=== PATIENT | male | born 1945 | race Caucasian/White ===

== ENCOUNTER 2017-04-29 22:06 | Inpatient (IN) | payer OTHER ==
--- NOTE | 2017-04-29 22:42 | PDOC ---
History of Present Illness - General History Source: Patient, Family, Old Records Exam Limitations: No Limitations - History of Present Illness Initial Comments: 04/29/17 23:10 The patient is a 71 year old male, with a significant past medical history of HTN and CAD with cardiac stent, who presents to the emergency department with rectal bleeding, lower abdominal pain, nausea, vomiting and dizziness onset today. He reports that he had a total of 3 bowel movements that were bloody in nature. He reports mild abdominal pain on the left side of his body, ranging from mild to moderate, without radiation or modifying factors. He notes that after a vomiting episode his abdominal pain resolved. He describes his vomit as nonbloody and nonbilious. He reports that he has never had a colonoscopy. The patient denies chest pain, shortness of breath, headache, fever, chills, diarrhea and constipation. Denies dysuria, frequency, urgency and hematuria. Allergies: Past surgical history: Knee surgery, eye surgery (Cataracts and Glaucoma) Social history: No alcohol, tobacco or drug use reported PMD - Dr. Gallito Mackenzie <Babak Thapa - Last Filed: 04/29/17 23:10> <Ysabel Mcleod - Last Filed: 04/30/17 03:06> - General Chief Complaint: Rectal Bleed Stated Complaint: RECTAL BLEED Time Seen by Provider: 04/29/17 22:30 Past History <Babak Thapa - Last Filed: 04/29/17 23:10> - Past Medical History Anemia: No Asthma: No Cancer: No Cardiac Disorders: Yes (STENT) CVA: No COPD: No CHF: No Dementia: No Diabetes: No GI Disorders: No Disorders: No HTN: Yes Hypercholesterolemia: Yes Liver Disease: No Seizures: No Thyroid Disease: No - Surgical History Abdominal Surgery: No Appendectomy: No Cardiac Surgery: Yes (STENT) Cholecystectomy: No Lung Surgery: No Neurologic Surgery: No Orthopedic Surgery: Yes (R KNEE SX ?) - Suicide/Smoking/Psychosocial Hx Smoking Status: No Smoking History: Never smoked Have you smoked in the past 12 months: No Number of Cigarettes Smoked Daily: 0 Information on smoking cessation initiated: No Hx Alcohol Use: No Drug/Substance Use Hx: No Substance Use Type: Alcohol Hx Substance Use Treatment: No <Ysabel Mcleod - Last Filed: 04/30/17 03:06> - Past Medical History Allergies/Adverse Reactions: Allergies Allergy/AdvReac Type Severity Reaction Status Date / Time No Known Drug Allergies Allergy Verified 05/18/14 08:46 Home Medications: Ambulatory Orders Atorvastatin Calcium 10 mg PO DAILY tablet 11/29/13 Aspirin [ASA -] 81 mg PO DAILY 04/26/14 Lisinopril [Prinivil -] 2.5 mg PO DAILY 04/26/14 Travoprost (Benzalkonium) [Travatan 0.004% Eye Drop] 1 drop OU HS 04/26/14 Nitroglycerin Sublingual [Nitrostat -] 0.4 mg SL PRN 04/27/14 Review of Systems - Review of Systems Able to Perform ROS?: Yes Comments:: 04/29/17 23:08 GENERAL/CONSTITUTIONAL: No fever or chills. No weakness. HEAD, EYES, EARS, NOSE AND THROAT: No change in vision. No ear pain or discharge. No sore throat.- CARDIOVASCULAR: No chest pain or shortness of breath RESPIRATORY: No cough, wheezing, or hemoptysis. GASTROINTESTINAL: (+) Abdominal pain, Rectal bleeding, nausea and vomiting. No diarrhea or constipation. GENITOURINARY: No dysuria, frequency, or change in urination. MUSCULOSKELETAL: No joint or muscle swelling or pain. No neck or back pain. SKIN: No rash NEUROLOGIC: (+) Dizziness. No headache, loss of consciousness, or change in strength/sensation. ENDOCRINE: No increased thirst. No abnormal weight change HEMATOLOGIC/LYMPHATIC: No anemia, easy bleeding, or history of blood clots. ALLERGIC/IMMUNOLOGIC: No hives or skin allergy. <Babak Thapa - Last Filed: 04/29/17 23:10> *Physical Exam - Vital Signs Last Vital Signs Temp Pulse Resp BP Pulse Ox 97.7 F 71 18 149/74 98 04/29/17 22:08 04/29/17 22:08 04/29/17 22:08 04/29/17 22:08 04/29/17 22:08 - Physical Exam Comments: 04/29/17 23:08 GENERAL: Awake, alert, and fully oriented, in no acute distress HEAD: No signs of trauma, normocephalic, atraumatic EYES: PERRLA, EOMI, sclera anicteric, conjunctiva clear ENT: Auricles normal inspection, hearing grossly normal, nares patent, oropharynx clear without exudates. Moist mucosa NECK: Normal ROM, supple, no lymphadenopathy, JVD, or masses LUNGS: No distress, speaks full sentences, clear to auscultation bilaterally HEART: Regular rate and rhythm, normal S1 and S2, no murmurs, rubs or gallops, peripheral pulses normal and equal bilaterally. ABDOMEN: Soft, nontender, normoactive bowel sounds. No guarding, no rebound. No masses EXTREMITIES : Normal inspection, Normal range of motion, no edema. No clubbing or cyanosis. NEUROLOGICAL: Cranial nerves II through XII grossly intact. Normal speech, normal gait, no focal sensorimotor deficits SKIN: Warm, Dry, normal turgor, no rashes or lesions noted. RECTAL EXAM: (+) Normal Tone and Melena. <Babak Thapa - Last Filed: 04/29/17 23:10> - Vital Signs Last Vital Signs Temp Pulse Resp BP Pulse Ox 97.7 F 71 18 149/74 98 04/29/17 22:08 04/29/17 22:08 04/29/17 22:08 04/29/17 22:08 04/29/17 22:08 <Ysabel Mcleod - Last Filed: 04/30/17 03:06> ED Treatment Course - LABORATORY CBC & Chemistry Diagram: 04/29/17 23:50 04/29/17 23:50 <Ysabel Mcleod - Last Filed: 04/30/17 03:06> Medical Decision Making - Medical Decision Making 04/30/17 01:20 71-year-old male came in with family because of rectal bleeding this evening. Past medical history of hypertension, coronary artery disease. At home, he had a bloody bowel movement and then later had another bowel movement. He became dizzy and vomited. On exam, he has melena CBC does not show any acute anemia he denies any shortness of breath or chest pain Spoke with Dr. Stefanie Coello who will admit him to [facility] 04/30/17 03:06 <Ysabel Mcleod - Last Filed: 04/30/17 03:06> *DC/Admit/Observation/Transfer - Attestations Scribe Attestion: 04/29/17 23:08 Documentation prepared by Babak Thapa, acting as medical consultant for Ysabel Mcleod MD <Babak Thapa - Last Filed: 04/29/17 23:10> - Discharge Dispostion Admit: Yes <Ysabel Mcleod - Last Filed: 04/30/17 03:06> Diagnosis at time of Disposition: Gastrointestinal hemorrhage with melena - Referrals
[2017-04-29] MEDS ORDERED: PANTOPRAZOLE SODIUM 40 MG in SODIUM CHLORIDE 100 ML IVPB ONE (22:58)
[2017-04-29] MEDS ORDERED: PANTOPRAZOLE SODIUM 100 ML IVPB ONE (23:59)
[2017-04-30 00:04] LABS: BASOPHIL 0.4 % (0-2.0); EOSINOPHIL 1.7 % (0-4.5); MCH 29.5 pg (25.7-33.7); MCHC 34.4 g/dl (32.0-35.9); MEAN CELL VOLUME 85.7 fl (80-96); MEAN PLT VOLUME 8.9 fl (7.5-11.1); NEUTROPHILS 77.5 % (42.8-82.8); PLATELET COUNT 248 K/MM3 (134-434); RDW 12.9 % (11.9-15.9)
[2017-04-30] MEDS: SODIUM CHLORIDE 1,000 ML IV SCH (00:09)
[2017-04-30 00:20] LABS: INR 1.03 (0.82-1.09); PROTHROMBIN TIME (PATIENT) 11.6 SEC (9.98-11.88)
[2017-04-30 00:33] LABS: ALBUMIN 3.9 g/dl (3.4-5.0); ANION GAP 8 (8-16); CO2 34 mmol/L (21-32); CREATININE 0.9 mg/dL (0.7-1.3); GLUCOSE,RANDOM 149 mg/dL (74-106); SGOT/AST 23 U/L (15-37); SGPT/ALT 30 U/L (12-78)
[2017-04-30 00:35] LABS: ALK PHOS 88 U/L (45-117); BILIRUBIN,TOTAL 0.3 mg/dL (0.2-1.0); TOT PROT 7.4 g/dl (6.4-8.2)
[2017-04-30 04:41] VITALS: BMI 28.1
[2017-04-30 10:24] LABS: MCH 29.3 pg (25.7-33.7); MCHC 34.1 g/dl (32.0-35.9); MEAN CELL VOLUME 86.1 fl (80-96); MEAN PLT VOLUME 8.8 fl (7.5-11.1); PLATELET COUNT 203 K/MM3 (134-434); RDW 12.7 % (11.9-15.9); WHITE BLOOD COUNT 8.4 K/mm3 (4.0-10.0)
--- NOTE | 2017-04-30 11:53 | EKG ---
Test Reason : Blood Pressure : / mmHG Vent. Rate : 072 BPM Atrial Rate : 072 BPM P-R Int : 162 ms QRS Dur : 080 ms QT Int : 386 ms P-R-T Axes : 029 -19 129 degrees QTc Int : 422 ms NORMAL SINUS RHYTHM LEFT VENTRICULAR HYPERTROPHY WITH REPOLARIZATION ABNORMALITY ABNORMAL ECG WHEN COMPARED WITH ECG OF 15-OCT-2011 11:59, PREMATURE VENTRICULAR COMPLEXES ARE NO LONGER PRESENT T WAVE INVERSION NOW EVIDENT IN ANTERIOR LEADS Confirmed by KVNG TAVAREZ, JETHRO ([id number]) on 04/30/2017 11:53:43 AM Referred By: Confirmed By:JETHRO CALDERON MD
--- NOTE | 2017-04-30 12:26 | HP ---
Admitting History and Physical - Primary Care Physician PCP: Gallito Mackenzie G - Admission Chief Complaint: gi bleed History of Present Illness: ER HISTORY History of Present Illness Initial Comments: 04/29/17 23:10 The patient is a 71 year old male, with a significant past medical history of HTN and CAD with cardiac stent, who presents to the emergency department with rectal bleeding, lower abdominal pain, nausea, vomiting and dizziness onset today. He reports that he had a total of 3 bowel movements that were bloody in nature. He reports mild abdominal pain on the left side of his body, ranging from mild to moderate, without radiation or modifying factors. He notes that after a vomiting episode his abdominal pain resolved. He describes his vomit as nonbloody and nonbilious. He reports that he has never had a colonoscopy. The patient denies chest pain, shortness of breath, headache, fever, chills, diarrhea and constipation. Denies dysuria, frequency, urgency and hematuria. Allergies: Past surgical history: Knee surgery, eye surgery (Cataracts and Glaucoma) Social history: No alcohol, tobacco or drug use reported PMD - Dr. Gallito Mackenzie Pt seen by me in the floors spoke with DR gonzalez- GI Pt's at bedside- history of events noted, had small amount of blood in stool this AM no abdominal pain or dizziness History Source: Patient Limitations to Obtaining History: No Limitations - Past Medical History Cardiovascular: Yes: CAD (s/p stent in 2011), HTN - Smoking History Smoking history: Never smoked Have you smoked in the past 12 months: No Aproximately how many cigarettes per day: 0 - Alcohol/Substance Use Hx Alcohol Use: No Home Medications - Allergies Allergies/Adverse Reactions: Allergies Allergy/AdvReac Type Severity Reaction Status Date / Time No Known Drug Allergies Allergy Verified 05/18/14 08:46 - Home Medications Home Medications: Ambulatory Orders Atorvastatin Calcium 10 mg PO DAILY tablet 11/29/13 Aspirin [ASA -] 81 mg PO DAILY 04/26/14 Lisinopril [Prinivil -] 2.5 mg PO DAILY 04/26/14 Travoprost (Benzalkonium) [Travatan 0.004% Eye Drop] 1 drop OU HS 04/26/14 Nitroglycerin Sublingual [Nitrostat -] 0.4 mg SL PRN 04/27/14 Review of Systems - Review of Systems Constitutional: denies: Chills, Fever Cardiovascular: denies: Chest Pain, Palpitations, Shortness of Breath Gastrointestinal: reports: Rectal Bleeding. denies: Abdominal Pain Physical Examination Vital Signs: Vital Signs Temperature 97.9 F 04/30/17 06:24 Pulse Rate 76 04/30/17 06:24 Respiratory Rate 20 04/30/17 06:24 Blood Pressure 133/67 04/30/17 06:24 O2 Sat by Pulse Oximetry (%) 98 04/30/17 04:08 Constitutional: Yes: No Distress, Calm Cardiovascular: Yes: Regular Rate and Rhythm. No: Murmur Respiratory: Yes: CTA Bilaterally Gastrointestinal: Yes: Normal Bowel Sounds, Soft, Abdomen, Obese. No: Distention, Tenderness Edema: No Psychiatric: Yes: Alert, Oriented Labs: CBC, BMP 04/30/17 10:10 Imaging - Results Chest X-ray: Image Reviewed (clear) EKG: Image Reviewed (NSR , LVH) Problem List - Problems (1) Arteriosclerotic heart disease (ASHD) Code(s): I25.10 - ATHSCL HEART DISEASE OF [place] CORONARY ARTERY W/O ANG PCTRS (2) Gastrointestinal hemorrhage with melena Code(s): K92.1 - MELENA (3) CAD (coronary artery disease) Code(s): I25.10 - ATHSCL HEART DISEASE OF [place] CORONARY ARTERY W/O ANG PCTRS (4) HTN (hypertension) Code(s): I10 - ESSENTIAL (PRIMARY) HYPERTENSION Assessment/Plan PLAN H/HCT stable, monitor HCT No active bleeding protonix to be added continue with home meds , hold off ASA and HCTZ spoke with pt's speech therapy teacher- Dr Zimmer and Dr Gonzalez may start diet -- liquid OOB DVT prophylaxis-- SCD spoke with scheduled for EGD and colonoscopy on Friday Time spent 40 min
--- NOTE | 2017-04-30 12:41 | CON.GI ---
Consult Consult Specialty:: Gastroenterology Referred by:: Dr Kayla Vicente Reason for Consultation:: Rectal bleeding - History of Present Illness Chief Complaint: Vomiting and rectal bleeding History of Present Illness: 71M developed vomiting of food followed by voluminous bright red hematesis yesterday. He had a small amount of blood passage again today. No hematemesis. He has never had an EGD or a colonoscopy. His brother had a bleeding colon polyp removed. His served as our metal handler. - History Source History Provided By: Patient Limitations to Obtaining History: Language Barrier - Past Medical History Cardio/Vascular: Yes: CAD (s/p stent in 2011, denies PR), HTN, Hyperlipdemia Gastrointestinal: Yes: Other (umbilical hernia) Additional Medical History: Glaucoma - Past Surgical History Past Surgical History: Yes: Arthrosocopy (right knee) - Alcohol/Substance Use Hx Alcohol Use: Yes (rare in holidays only) History of Substance Use: reports: None - Smoking History Smoking history: Never smoked Have you smoked in the past 12 months: No Aproximately how many cigarettes per day: 0 - Social History Usual Living Arrangement: With Spouse ADL: Independent Occupation: retired bus and independent driver Place of : [place] ([place] Came to [place] (year[place] age 29 History of Recent Travel: No Home Medications - Allergies Allergies/Adverse Reactions: Allergies Allergy/AdvReac Type Severity Reaction Status Date / Time No Known Drug Allergies Allergy Verified 05/18/14 08:46 - Home Medications Home Medications: Ambulatory Orders Atorvastatin Calcium 10 mg PO DAILY tablet 11/29/13 Aspirin [ASA -] 81 mg PO DAILY 04/26/14 Lisinopril [Prinivil -] 2.5 mg PO DAILY 04/26/14 Travoprost (Benzalkonium) [Travatan 0.004% Eye Drop] 1 drop OU HS 04/26/14 Nitroglycerin Sublingual [Nitrostat -] 0.4 mg SL PRN 04/27/14 Family Disease History - Family Disease History Family Disease History: Other: Father ( 55 valcoholic cirrhosis), Mother ( lived into her 90s), Brother (colon polyp) Review of Systems - Review of Systems Constitutional: reports: No Symptoms Eyes: reports: No Symptoms HENT: reports: No Symptoms Neck: reports: No Symptoms Cardiovascular: reports: No Symptoms Respiratory: reports: No Symptoms Gastrointestinal: reports: Rectal Bleeding, Vomiting Musculoskeletal: reports: No Symptoms Neurological: reports: No Symptoms Endocrine: reports: No Symptoms Physical Exam-GI Vital Signs: Vital Signs Temperature 97.9 F 04/30/17 06:24 Pulse Rate 76 04/30/17 06:24 Respiratory Rate 20 04/30/17 06:24 Blood Pressure 133/67 04/30/17 06:24 O2 Sat by Pulse Oximetry (%) 98 04/30/17 04:08 CBC,CMP WBC 8.4 K/mm3 (4.0-10.0) D 04/30/17 10:10 RBC 4.49 M/mm3 (4.00-5.60) 04/30/17 10:10 Hgb 13.2 GM/dL (11.7-16.9) 04/30/17 10:10 Hct 38.7 % (35.4-49) 04/30/17 10:10 MCV 86.1 fl (80-96) 04/30/17 10:10 MCH 29.3 pg (25.7-33.7) 04/30/17 10:10 MCHC 34.1 g/dl (32.0-35.9) 04/30/17 10:10 RDW 12.7 % (11.9-15.9) 04/30/17 10:10 Plt Count 203 K/MM3 (134-434) 04/30/17 10:10 MPV 8.8 fl (7.5-11.1) 04/30/17 10:10 Neutrophils % 77.5 % (42.8-82.8) D 04/29/17 23:50 Lymphocytes % 12.8 % (8-40) D 04/29/17 23:50 Monocytes % 7.6 % (3.8-10.2) 04/29/17 23:50 Eosinophils % 1.7 % (0-4.5) 04/29/17 23:50 Basophils % 0.4 % (0-2.0) 04/29/17 23:50 Retic Count 1.39 % (0.5-1.5) 04/29/17 23:50 Sodium 138 mmol/L (136-145) 04/29/17 23:50 Potassium 3.6 mmol/L (3.5-5.1) 04/29/17 23:50 Chloride 96 mmol/L (98-107) L 04/29/17 23:50 Carbon Dioxide 34 mmol/L (21-32) H 04/29/17 23:50 Anion Gap 8 (8-16) 04/29/17 23:50 BUN 12 mg/dL (7-18) 04/29/17 23:50 Creatinine 0.9 mg/dL (0.7-1.3) 04/29/17 23:50 Creat Clearance w eGFR > 60 (>60) 04/29/17 23:50 Random Glucose 149 mg/dL (74-106) H 04/29/17 23:50 Calcium 9.0 mg/dL (8.5-10.1) 04/29/17 23:50 Total Bilirubin 0.3 mg/dL (0.2-1.0) 04/29/17 23:50 AST 23 U/L (15-37) D 04/29/17 23:50 ALT 30 U/L (12-78) 04/29/17 23:50 Alkaline Phosphatase 88 U/L (45-117) 04/29/17 23:50 Total Protein 7.4 g/dl (6.4-8.2) 04/29/17 23:50 Albumin 3.9 g/dl (3.4-5.0) 04/29/17 23:50 Current Medications Generic Name Dose Route Start Last Admin Trade Name Freq PRN Reason Stop Dose Admin Sodium Chloride 1,000 mls @ 125 mls/hr 04/29/17 23:00 04/30/17 00:09 Normal Saline - IV 125 mls/hr ASDIR EUGENE Administration Non-Formulary Medication 1 drop 04/30/17 22:00 Travoprost (Benzalkonium) [Travatan 0.004% Eye Drop] OU HS EUGENE Constitutional: Yes: No Distress Eyes: Yes: EOM Intact HENT: Yes: Normocephalic Neck: Yes: Supple Cardiovascular: Yes: Regular Rate and Rhythm Respiratory: Yes: CTA Bilaterally Gastrointestinal Inspection: Yes: Hernia (nontender umbilical hernia) ...Auscultate: Yes: Normoactive Bowel Sounds ...Palpate: Yes: Soft, Other (nontender) ...Percussion: Yes: Tympanitic ...Rectal Exam: Yes: Guaiac Positive (gross blood, no masses), Sphincter Tone Normal Genitourinary: Yes: Other (2+ prostate, no inguinal hernias) Edema: No Peripheral Pulses WNL: Yes Neurological: Yes: Alert Labs: CBC, BMP 04/30/17 10:10 INR, PTT INR 1.03 (0.82-1.09) 04/29/17 23:50 Laboratory Tests 04/29/17 04/29/17 04/29/17 23:50 23:50 23:50 WBC 13.0 H D Hgb 14.0 PT with INR 11.60 Total Bilirubin 0.3 AST 23 D ALT 30 Alkaline Phosphatase 88 04/30/17 10:10 WBC 8.4 D Hgb 13.2 PT with INR Total Bilirubin AST ALT Alkaline Phosphatase Problem List - Problems (1) Rectal bleeding Assessment/Plan: Given his aspirin usage and FH of a colon polyp upper and lower sources of bleeding need to be excluded. I suspect however that his bleeding will prove to be hemrorhoidal as it has subsided without causing a significant anemia. I have advised EGD and a colonosopcy to exclude bleeding neoplasm, ulcer, erosive gastritis and AVMs among other possibiloities. 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 After answering their questions he signed an informed consent but wants to see his airplane technician before undergoing the procedures. I have discussed this with Dr Vicente. Code(s): K62.5 - HEMORRHAGE OF ANUS AND RECTUM (2) Vomiting Code(s): R11.10 - VOMITING, UNSPECIFIED (3) Family history of colonic polyps Code(s): Z83.71 - FAMILY HISTORY OF COLONIC POLYPS (4) Arteriosclerotic heart disease (ASHD) Code(s): I25.10 - ATHSCL HEART DISEASE OF [place] CORONARY ARTERY W/O ANG PCTRS (5) Stented coronary artery Code(s): Z95.5 - PRESENCE OF CORONARY ANGIOPLASTY IMPLANT AND GRAFT
--- NOTE | 2017-04-30 13:03 | CON.CARD ---
Consult - History of Present Illness History of Present Illness: The patient is a 71 year old male, with a significant past medical history of HTN and CAD with cardiac stent, who presents to the emergency department with rectal bleeding, lower abdominal pain, nausea, vomiting and dizziness onset today. He reports that he had a total of 3 bowel movements that were bloody in nature. He reports mild abdominal pain on the left side of his body, ranging from mild to moderate, without radiation or modifying factors. He notes that after a vomiting episode his abdominal pain resolved. He describes his vomit as nonbloody and nonbilious. He reports that he has never had a colonoscopy. The patient denies chest pain, shortness of breath, headache, fever, chills, diarrhea and constipation. Denies dysuria, frequency, urgency and hematuria. Allergies: Past surgical history: Knee surgery, eye surgery (Cataracts and Glaucoma) Social history: No alcohol, tobacco or drug use reported PMD - Dr. Gallito Mackenzie [facility] drug-eluting stent of OM2 during NSTEMI (10/15/11) Ongoing medical problems BPH erectile dysfunction glaucoma HTN hyperlipidemia NSTEMI 10/15/2011-->Coronary angiogram: 3VD, with JOSÉ of OM2 (LAD prox 30%;mid40 %;distal 50%; D1 95% inf branch; OM1 30%;OM2 98%-->JOSÉ; RCA prox 40%;mid 30%; RPDA 30%; RPLS 98% tandem) obesity occasional headaches (?related to glaucoma) - History Source History Provided By: Patient, Medical Record - Past Medical History Cardio/Vascular: Yes: CAD (s/p stent in 2011, denies MT), HTN, Hyperlipdemia Gastrointestinal: Yes: Other (umbilical hernia) Additional Medical History: Glaucoma - Past Surgical History Past Surgical History: Yes: Arthrosocopy (right knee) - Alcohol/Substance Use Hx Alcohol Use: Yes (rare in holidays only) History of Substance Use: reports: None - Smoking History Smoking history: Never smoked Have you smoked in the past 12 months: No Aproximately how many cigarettes per day: 0 - Social History Usual Living Arrangement: With Spouse ADL: Independent Occupation: retired bus and clamp truck driver History of Recent Travel: No Home Medications - Allergies Allergies/Adverse Reactions: Allergies Allergy/AdvReac Type Severity Reaction Status Date / Time No Known Drug Allergies Allergy Verified 05/18/14 08:46 - Home Medications Home Medications: Ambulatory Orders Atorvastatin Calcium 10 mg PO DAILY tablet 11/29/13 Aspirin [ASA -] 81 mg PO DAILY 04/26/14 Lisinopril [Prinivil -] 2.5 mg PO DAILY 04/26/14 Travoprost (Benzalkonium) [Travatan 0.004% Eye Drop] 1 drop OU HS 04/26/14 Nitroglycerin Sublingual [Nitrostat -] 0.4 mg SL PRN 04/27/14 Family Disease History - Family Disease History Family Disease History: Other: Father ( 55 valcoholic cirrhosis), Mother ( lived into her 90s), Brother (colon polyp) Review of Systems - Review of Systems Constitutional: reports: No Symptoms Eyes: reports: No Symptoms HENT: reports: No Symptoms Neck: reports: No Symptoms Cardiovascular: reports: No Symptoms Gastrointestinal: reports: Rectal Bleeding Genitourinary: reports: No Symptoms Breasts: reports: No Symptoms Reported Musculoskeletal: reports: No Symptoms Integumentary: reports: No Symptoms Neurological: reports: No Symptoms Endocrine: reports: No Symptoms Hematology/Lymphatic: reports: No Symptoms Psychiatric: reports: No Symptoms Vital Signs: Vital Signs Temperature 97.9 F 04/30/17 06:24 Pulse Rate 76 04/30/17 06:24 Respiratory Rate 20 04/30/17 06:24 Blood Pressure 133/67 04/30/17 06:24 O2 Sat by Pulse Oximetry (%) 98 04/30/17 04:08 Constitutional: Yes: Well Nourished, No Distress, Calm Eyes: Yes: WNL, Conjunctiva Clear, EOM Intact HENT: Yes: WNL, Atraumatic, Normocephalic Neck: Yes: WNL, Supple, Trachea Midline Respiratory: Yes: WNL, Regular, CTA Bilaterally Gastrointestinal: Yes: WNL, Normal Bowel Sounds Renal/: Yes: WNL Cardiovascular: Yes: WNL, Regular Rate and Rhythm Musculoskeletal: Yes: WNL Extremities: Yes: WNL Integumentary: Yes: WNL Neurological: Yes: WNL, Alert, Oriented ...Motor Strength: WNL Psychiatric: Yes: WNL, Alert, Oriented - Other Data Labs, Other Data: CBC, BMP 04/30/17 10:10 INR, PTT INR 1.03 (0.82-1.09) 04/29/17 23:50 Laboratory Tests 04/29/17 04/29/17 04/29/17 23:30 23:50 23:50 WBC 13.0 H D RBC 4.76 Hgb 14.0 Hct 40.8 MCV 85.7 MCH 29.5 MCHC 34.4 RDW 12.9 Plt Count 248 MPV 8.9 Neutrophils % 77.5 D Lymphocytes % 12.8 D Monocytes % 7.6 Eosinophils % 1.7 Basophils % 0.4 Retic Count 1.39 PT with INR 11.60 INR 1.03 Sodium Potassium Chloride Carbon Dioxide Anion Gap BUN Creatinine Creat Clearance w eGFR Random Glucose Calcium Total Bilirubin AST ALT Alkaline Phosphatase Total Protein Albumin Stool Occult Blood Positive Blood Type Antibody Screen 04/29/17 04/29/17 04/30/17 23:50 23:50 01:45 WBC RBC Hgb Hct MCV MCH MCHC RDW Plt Count MPV Neutrophils % Lymphocytes % Monocytes % Eosinophils % Basophils % Retic Count PT with INR INR Sodium 138 Potassium 3.6 Chloride 96 L Carbon Dioxide 34 H Anion Gap 8 BUN 12 Creatinine 0.9 Creat Clearance w eGFR > 60 Random Glucose 149 H Calcium 9.0 Total Bilirubin 0.3 AST 23 D ALT 30 Alkaline Phosphatase 88 Total Protein 7.4 Albumin 3.9 Stool Occult Blood Blood Type O POSITIVE O POSITIVE Antibody Screen Negative 04/30/17 10:10 WBC 8.4 D RBC 4.49 Hgb 13.2 Hct 38.7 MCV 86.1 MCH 29.3 MCHC 34.1 RDW 12.7 Plt Count 203 MPV 8.8 Neutrophils % Lymphocytes % Monocytes % Eosinophils % Basophils % Retic Count PT with INR INR Sodium Potassium Chloride Carbon Dioxide Anion Gap BUN Creatinine Creat Clearance w eGFR Random Glucose Calcium Total Bilirubin AST ALT Alkaline Phosphatase Total Protein Albumin Stool Occult Blood Blood Type Antibody Screen Imaging - Results Chest X-ray: Image Reviewed EKG: Image Reviewed (sr lvh rep abn) Problem List - Problems (1) Arteriosclerotic heart disease (ASHD) Code(s): I25.10 - ATHSCL HEART DISEASE OF [place] CORONARY ARTERY W/O ANG PCTRS (2) CAD (coronary artery disease) Code(s): I25.10 - ATHSCL HEART DISEASE OF [place] CORONARY ARTERY W/O ANG PCTRS (3) Family history of colonic polyps Code(s): Z83.71 - FAMILY HISTORY OF COLONIC POLYPS (4) Gastrointestinal hemorrhage with melena Code(s): K92.1 - MELENA (5) HTN (hypertension) Code(s): I10 - ESSENTIAL (PRIMARY) HYPERTENSION (6) Rectal bleeding Code(s): K62.5 - HEMORRHAGE OF ANUS AND RECTUM (7) Stented coronary artery Code(s): Z95.5 - PRESENCE OF CORONARY ANGIOPLASTY IMPLANT AND GRAFT (8) Vomiting Code(s): R11.10 - VOMITING, UNSPECIFIED (9) Head injury Code(s): S09.90XA - UNSPECIFIED INJURY OF HEAD, INITIAL ENCOUNTER (10) Whiplash Code(s): S13.4XXA - SPRAIN OF LIGAMENTS OF CERVICAL SPINE, INITIAL ENCOUNTER Assessment/Plan GI bleed drug-eluting stent of OM2 during NSTEMI (10/15/11) Ongoing medical problems BPH erectile dysfunction glaucoma HTN hyperlipidemia NSTEMI 10/15/2011-->Coronary angiogram: 3VD, with JOSÉ of OM2 (LAD prox 30%;mid40 %;distal 50%; D1 95% inf branch; OM1 30%;OM2 98%-->JOSÉ; RCA prox 40%;mid 30%; RPDA 30%; RPLS 98% tandem) obesity occasional headaches (?related to glaucoma) Plan echo gi w/u cardiac palumbo stable
[2017-04-30] MEDS: LISINOPRIL 20 MG TABLET (FP) PO SCH (16:49)
[2017-04-30] MEDS: PANTOPRAZOLE 40 MG TABLET (FP) PO SCH (16:49)
[2017-04-30] MEDS: METOPROLOL SUCCINATE 25 MG TAB.SR.24H (FP) PO SCH (16:50)
[2017-04-30] MEDS: LATANOPROST 0.005% OPHTH SOLN 2.5ML BOTTLE OU SCH (21:38)
[2017-05-01] MEDS: SODIUM CHLORIDE 1,000 ML IV SCH ×3 (04:10→21:41)
[2017-05-01 08:43] LABS: BASOPHIL 0.6 % (0-2.0); EOSINOPHIL 3.6 % (0-4.5); MCH 29.4 pg (25.7-33.7); MCHC 34.4 g/dl (32.0-35.9); MEAN CELL VOLUME 85.5 fl (80-96); MEAN PLT VOLUME 8.8 fl (7.5-11.1); NEUTROPHILS 57.1 % (42.8-82.8); PLATELET COUNT 203 K/MM3 (134-434); RDW 13.1 % (11.9-15.9); WHITE BLOOD COUNT 6.6 K/mm3 (4.0-10.0)
[2017-05-01] MEDS ORDERED: PEG3350/SOD SULF,BICARB,CL/KCL 4,000 ML SOLN.RECON PO ONE (09:00)
[2017-05-01 09:17] LABS: ANION GAP 6 (8-16); CALCIUM 8.3 mg/dL (8.5-10.1); CO2 27 mmol/L (21-32); CREATININE 0.8 mg/dL (0.7-1.3); GLUCOSE,RANDOM 127 mg/dL (74-106)
[2017-05-01 09:22] LABS: FERRITIN 86.754 ng/ml (16.4-293.9)
[2017-05-01] MEDS ORDERED: PT OWN MED DRAWER 7, Y5N ONE (09:22)
[2017-05-01] MEDS: METOPROLOL SUCCINATE 25 MG TAB.SR.24H (FP) PO SCH (09:23)
[2017-05-01] MEDS: PANTOPRAZOLE 40 MG TABLET (FP) PO SCH (09:23)
[2017-05-01] MEDS: LISINOPRIL 20 MG TABLET (FP) PO SCH (09:23)
--- NOTE | 2017-05-01 10:28 | PN ---
Progress Note, Physician Chief Complaint: Pt A&Ox3; nauseous while drinking bowel prep.His is at the bedside. History of Present Illness: The patient is a 71 year old male (b. [facility]), with a significant past medical history of HTN and CAD with cardiac stent, who presents to the emergency department with rectal bleeding, lower abdominal pain, nausea, vomiting and dizziness onset today. He reports that he had a total of 3 bowel movements that were bloody in nature. He reports mild abdominal pain on the left side of his body, ranging from mild to moderate, without radiation or modifying factors. He notes that after a vomiting episode his abdominal pain resolved. He describes his vomit as nonbloody and nonbilious. He reports that he has never had a colonoscopy. The patient denies chest pain, shortness of breath, headache, fever, chills, diarrhea and constipation. Denies dysuria, frequency, urgency and hematuria. Allergies: Past surgical history: Knee surgery, eye surgery (Cataracts and Glaucoma) Social history: No alcohol, tobacco or drug use reported PMD - Dr. Gallito Mackenzie - Current Medication List Current Medications: Active Medications Atorvastatin Calcium (Lipitor -) 10 mg PO HS [facility] Bisacodyl (Dulcolax -) 20 mg PO ONCE ONE Stop: 05/01/17 18:01 Sodium Chloride (Normal Saline -) 1,000 mls @ 125 mls/hr IV ASDIR [facility] Last Admin: 05/01/17 04:10 Dose: 125 mls/hr Latanoprost (Xalatan 0.005% Eye Drops -) 1 drop OU HS [facility] Last Admin: 04/30/17 21:38 Dose: 1 drop Lisinopril (Prinivil) 20 mg PO DAILY [facility] Last Admin: 05/01/17 09:23 Dose: 20 mg Metoprolol Succinate (Toprol Xl -) 25 mg PO DAILY [facility] Last Admin: 05/01/17 09:23 Dose: 25 mg Pantoprazole Sodium (Protonix -) 40 mg PO DAILY [facility] Last Admin: 05/01/17 09:23 Dose: 40 mg - Objective Vital Signs: Vital Signs Temperature 98.2 F 05/01/17 06:20 Pulse Rate 65 05/01/17 06:20 Respiratory Rate 20 05/01/17 06:20 Blood Pressure 140/76 05/01/17 06:20 O2 Sat by Pulse Oximetry (%) 98 04/30/17 21:00 Constitutional: Yes: Anxious Eyes: Yes: WNL HENT: Yes: WNL Neck: Yes: WNL Cardiovascular: Yes: Regular Rate and Rhythm Respiratory: Yes: WNL Gastrointestinal: Yes: Soft ...Rectal Exam: Yes: Deferred Genitourinary: No: Anuria Breast(s): Yes: WNL Musculoskeletal: Yes: WNL Extremities: Yes: WNL Edema: No Peripheral Pulses WNL: Yes Integumentary: Yes: WNL Neurological: Yes: WNL ...Motor Strength: WNL Psychiatric: Yes: WNL Labs: CBC, BMP 05/01/17 06:00 05/01/17 06:00 INR, PTT INR 1.03 (0.82-1.09) 04/29/17 23:50 Problem List - Problems (1) Gastrointestinal hemorrhage with melena Assessment/Plan: For colonoscopy and endoscopy. Code(s): K92.1 - MELENA (2) HTN (hypertension) Assessment/Plan: on linisopril and metoprolol Code(s): I10 - ESSENTIAL (PRIMARY) HYPERTENSION (3) Stented coronary artery Code(s): Z95.5 - PRESENCE OF CORONARY ANGIOPLASTY IMPLANT AND GRAFT (4) Hyperlipidemia Assessment/Plan: on lipitor. Code(s): E78.5 - HYPERLIPIDEMIA, UNSPECIFIED
[2017-05-01 10:52] LABS: CHOLESTEROL 105 mg/dL (50-200)
--- NOTE | 2017-05-01 11:29 | PN ---
Progress Note, Physician Chief Complaint: pt getting prepared for colonoscopy and EGD tomorrow seen by Cardiology feels well has some bloody bm when being prepped - Current Medication List Current Medications: Active Medications Atorvastatin Calcium (Lipitor -) 10 mg PO HS [facility] Bisacodyl (Dulcolax -) 20 mg PO ONCE ONE Stop: 05/01/17 18:01 Sodium Chloride (Normal Saline -) 1,000 mls @ 125 mls/hr IV ASDIR [facility] Last Admin: 05/01/17 04:10 Dose: 125 mls/hr Latanoprost (Xalatan 0.005% Eye Drops -) 1 drop OU HS [facility] Last Admin: 04/30/17 21:38 Dose: 1 drop Lisinopril (Prinivil) 20 mg PO DAILY [facility] Last Admin: 05/01/17 09:23 Dose: 20 mg Metoprolol Succinate (Toprol Xl -) 25 mg PO DAILY [facility] Last Admin: 05/01/17 09:23 Dose: 25 mg Pantoprazole Sodium (Protonix -) 40 mg PO DAILY [facility] Last Admin: 05/01/17 09:23 Dose: 40 mg - Objective Vital Signs: Vital Signs Temperature 98.2 F 05/01/17 06:20 Pulse Rate 65 05/01/17 06:20 Respiratory Rate 20 05/01/17 06:20 Blood Pressure 140/76 05/01/17 06:20 O2 Sat by Pulse Oximetry (%) 98 04/30/17 21:00 Constitutional: Yes: No Distress Cardiovascular: Yes: Regular Rate and Rhythm Respiratory: Yes: CTA Bilaterally Gastrointestinal: Yes: Normal Bowel Sounds, Soft, Abdomen, Obese. No: Tenderness Edema: No Labs: CBC, BMP 05/01/17 06:00 05/01/17 06:00 INR, PTT INR 1.03 (0.82-1.09) 04/29/17 23:50 Problem List - Problems (1) Arteriosclerotic heart disease (ASHD) Code(s): I25.10 - ATHSCL HEART DISEASE OF [place] CORONARY ARTERY W/O ANG PCTRS (2) Gastrointestinal hemorrhage with melena Code(s): K92.1 - MELENA (3) CAD (coronary artery disease) Code(s): I25.10 - ATHSCL HEART DISEASE OF [place] CORONARY ARTERY W/O ANG PCTRS (4) HTN (hypertension) Code(s): I10 - ESSENTIAL (PRIMARY) HYPERTENSION Assessment/Plan PLAN H/HCT stable, monitor HCT and pt reassured about bleeding during colon prep protonix continue with home meds , hold off ASA and HCTZ spoke with pt's physical testing supervisor- Dr Mesha DAVEY DVT prophylaxis-- SCD spoke with scheduled for EGD and colonoscopy on Friday
[2017-05-01] MEDS ORDERED: BISACODYL 5 MG TABLET.DR (FP) PO ONE (18:00)
[2017-05-01] MEDS: LATANOPROST 0.005% OPHTH SOLN 2.5ML BOTTLE OU SCH (21:40)
[2017-05-01] MEDS: ATORVASTATIN CA 10 MG TABLET (FP) PO SCH (21:40)
--- NOTE | 2017-05-02 05:36 | RAPID ---
Physical Examination Vital Signs: Vital Signs Temperature 98 F 05/01/17 23:00 Pulse Rate 66 05/01/17 23:00 Respiratory Rate 18 05/01/17 23:00 Blood Pressure 150/70 05/01/17 23:00 O2 Sat by Pulse Oximetry (%) 98 05/01/17 21:00 Constitutional: Yes: Well Nourished, Calm Eyes: Yes: Conjunctiva Clear, EOM Intact HENT: Yes: Atraumatic, Normocephalic Neck: Yes: Supple, Trachea Midline Cardiovascular: Yes: Regular Rate and Rhythm, S1, S2. No: Tachycardia, Gallop, Murmur, Rub Respiratory: Yes: Regular, CTA Bilaterally. No: Accessory Muscle Use Gastrointestinal: Yes: Soft. No: Distention, Tenderness Extremities: Yes: WNL. No: Erythema Edema: No Neurological: Yes: Alert, Oriented Labs: CBC, BMP 05/01/17 06:00 05/01/17 06:00 Rapid Response - Rapid Response Assessment: Rapid Response called at 5:20am. 71yo M with PMH of CAD with stent, admitted for gi bleed. Pt had a presyncopal episode after using the toilet. Pt s/p [employer] preparing for procedure today. Pt had a bowel movement of bright red blood. Upon rising from toilet pt felt dizzy and weak. Nurse was in bathroom with pt as pt slumped towards floor. Pt did not fall, did not hit floor. (-) LOC. Pt feels fine on exam. VSS: BP 114/75, HR 70 Pt had a vagal episode. - EKG -> NSR, LVH - f/u stat cbc - NS 500ml bolus - Primary Team will reassess.
[2017-05-02] MEDS ORDERED: SODIUM CHLORIDE 500 ML IV STA (05:39)
[2017-05-02 06:06] LABS: MCH 30.2 pg (25.7-33.7); MCHC 35.1 g/dl (32.0-35.9); MEAN PLT VOLUME 9.1 fl (7.5-11.1); PLATELET COUNT 221 K/MM3 (134-434); RDW 12.8 % (11.9-15.9); WHITE BLOOD COUNT 8.8 K/mm3 (4.0-10.0)
[2017-05-02 06:10] LABS: SERUM IRON 102 ug/dL (38-169); TOTAL IRON BINDING CAPACITY 255 ug/dL (250-450); UIBC 153 ug/dL (111-343)
[2017-05-02 08:39] LABS: MCHC 35.3 g/dl (32.0-35.9); MEAN PLT VOLUME 8.7 fl (7.5-11.1); PLATELET COUNT 181 K/MM3 (134-434); RDW 12.7 % (11.9-15.9); WHITE BLOOD COUNT 8.6 K/mm3 (4.0-10.0)
--- NOTE | 2017-05-02 08:48 | PN ---
Progress Note (short form) - Note Progress Note: Events noted/ chart reviewed Has Rapid response earlier this morning Scheduled for egd/ colonoscopy today. feels well no complains denies pain family at bed side Vital Signs Temp 97.8 F 05/02/17 06:00 Pulse 68 05/02/17 06:00 Resp 18 05/02/17 06:00 BP 140/75 05/02/17 06:00 Pulse Ox 98 05/01/17 21:00 Intake & Output 05/01/17 05/01/17 05/02/17 11:59 23:59 11:59 Intake Total 975 1931 1250 Output Total 1 2 Balance 975 1930 1248 Intake: IV 875 1831 1250 Normal Saline - 1,000 ml 875 1831 1250 @ 125 mls/hr IV ASDIR [facility] Rx#:[id number] Oral 100 100 Output: Urine 1 2 Void 1 2 Other: Voiding Method Toilet Toilet Bowel Movement Yes Yes # Bowel Movements 2 2 Active Medications Atorvastatin Calcium (Lipitor -) 10 mg PO [facility] Last Admin: 05/01/17 21:40 Dose: 10 mg Sodium Chloride (Normal Saline -) 1,000 mls @ 125 mls/hr IV ASDIR [facility] Last Admin: 05/01/17 21:41 Dose: 125 mls/hr Latanoprost (Xalatan 0.005% Eye Drops -) 1 drop OU [facility] Last Admin: 05/01/17 21:40 Dose: 1 drop Lisinopril (Prinivil) 20 mg PO DAILY [facility] Last Admin: 05/01/17 09:23 Dose: 20 mg Metoprolol Succinate (Toprol Xl -) 25 mg PO DAILY [facility] Last Admin: 05/01/17 09:23 Dose: 25 mg Pantoprazole Sodium (Protonix -) 40 mg PO DAILY [facility] Last Admin: 05/01/17 09:23 Dose: 40 mg CBC, BMP 05/02/17 06:00 05/01/17 06:00 Physical Exam Constitutional: Yes: No Distress/ comfortable Cardiovascular: Yes: Regular Rate and Rhythm Respiratory: Yes: CTA Bilaterally Gastrointestinal: Yes: Normal Bowel Sounds, Soft, Abdomen, Obese. No: Distention, Tenderness Edema: No Problem List - Problems (1) Arteriosclerotic heart disease (ASHD) Code(s): I25.10 - ATHSCL HEART DISEASE OF [place] CORONARY ARTERY W/O ANG PCTRS (2) Gastrointestinal hemorrhage with melena Code(s): K92.1 - MELENA (3) CAD (coronary artery disease) Code(s): I25.10 - ATHSCL HEART DISEASE OF [place] CORONARY ARTERY W/O ANG PCTRS (4) HTN (hypertension) Code(s): I10 - ESSENTIAL (PRIMARY) HYPERTENSION Assessment/Plan Gi Bleed diverticular bleed--likely for egd/colonoscopy today stable for same discussed in detail with pts /son who are at bedside
[2017-05-02] MEDS ORDERED: PT OWN MED DRAWER 7, Y5N ONE (10:21)
[2017-05-02] MEDS: LISINOPRIL 20 MG TABLET (FP) PO SCH (10:28)
[2017-05-02] MEDS: METOPROLOL SUCCINATE 25 MG TAB.SR.24H (FP) PO SCH (10:28)
[2017-05-02] MEDS: PANTOPRAZOLE 40 MG TABLET (FP) PO SCH ×2 (10:28→22:23)
[2017-05-02] MEDS: SODIUM CHLORIDE 1,000 ML IV SCH ×2 (14:11→23:00)
[2017-05-02] MEDS: ATORVASTATIN CA 10 MG TABLET (FP) PO SCH (22:23)
[2017-05-02] MEDS: LATANOPROST 0.005% OPHTH SOLN 2.5ML BOTTLE OU SCH (22:26)
[2017-05-03 08:43] LABS: BASOPHIL 0.3 % (0-2.0); EOSINOPHIL 2.1 % (0-4.5); MCH 30.1 pg (25.7-33.7); MEAN CELL VOLUME 86.1 fl (80-96); PLATELET COUNT 158 K/MM3 (134-434); RDW 12.8 % (11.9-15.9); WHITE BLOOD COUNT 5.9 K/mm3 (4.0-10.0)
[2017-05-03 09:13] LABS: ANION GAP 7 (8-16); CALCIUM 7.4 mg/dL (8.5-10.1); CO2 25 mmol/L (21-32); CREATININE 0.7 mg/dL (0.7-1.3); GLUCOSE,RANDOM 122 mg/dL (74-106)
[2017-05-03] MEDS: SODIUM CHLORIDE 1,000 ML IV SCH ×2 (10:22→12:28)
[2017-05-03] MEDS: LISINOPRIL 20 MG TABLET (FP) PO SCH (10:23)
[2017-05-03] MEDS: METOPROLOL SUCCINATE 25 MG TAB.SR.24H (FP) PO SCH (10:24)
[2017-05-03] MEDS: PANTOPRAZOLE 40 MG TABLET (FP) PO SCH ×2 (10:24→21:16)
--- NOTE | 2017-05-03 10:26 | PN ---
Progress Note, Physician Chief Complaint: Spoke with Dr Gonzalez yesterday regarding EGD and colonoscopy reports reviewed pt had bloody bm x 2 yesterday family at bedside - Current Medication List Current Medications: Active Medications Atorvastatin Calcium (Lipitor -) 10 mg PO HS [facility] Last Admin: 05/02/17 22:23 Dose: 10 mg Sodium Chloride (Normal Saline -) 1,000 mls @ 125 mls/hr IV ASDIR [facility] Last Admin: 05/03/17 10:22 Dose: 125 mls/hr Latanoprost (Xalatan 0.005% Eye Drops -) 1 drop OU HS [facility] Last Admin: 05/02/17 22:26 Dose: 1 drop Lisinopril (Prinivil) 20 mg PO DAILY [facility] Last Admin: 05/03/17 10:23 Dose: 20 mg Metoprolol Succinate (Toprol Xl -) 25 mg PO DAILY [facility] Last Admin: 05/03/17 10:24 Dose: 25 mg Pantoprazole Sodium (Protonix -) 40 mg PO BID [facility] Last Admin: 05/03/17 10:24 Dose: 40 mg - Objective Vital Signs: Vital Signs Temperature 98.4 F 05/03/17 10:00 Pulse Rate 86 05/03/17 10:00 Respiratory Rate 20 05/03/17 10:00 Blood Pressure 132/60 05/03/17 10:00 O2 Sat by Pulse Oximetry (%) 99 05/02/17 21:00 Constitutional: Yes: No Distress Cardiovascular: Yes: Regular Rate and Rhythm Respiratory: Yes: CTA Bilaterally Gastrointestinal: Yes: Normal Bowel Sounds, Soft, Abdomen, Obese. No: Distention, Tenderness Edema: No Labs: CBC, BMP 05/03/17 06:00 05/03/17 06:00 INR, PTT INR 1.03 (0.82-1.09) 04/29/17 23:50 Problem List - Problems (1) Arteriosclerotic heart disease (ASHD) Code(s): I25.10 - ATHSCL HEART DISEASE OF [place] CORONARY ARTERY W/O ANG PCTRS (2) Gastrointestinal hemorrhage with melena Code(s): K92.1 - MELENA (3) CAD (coronary artery disease) Code(s): I25.10 - ATHSCL HEART DISEASE OF [place] CORONARY ARTERY W/O ANG PCTRS (4) HTN (hypertension) Code(s): I10 - ESSENTIAL (PRIMARY) HYPERTENSION Assessment/Plan PLAN diverticular bleeding today had pinkish color to stool x1 protonix continue with home meds , hold off ASA and HCTZ pt hesitant about transfusion, will check CBC Q12H-- if next Hb low, will transfuse DVT prophylaxis-- SCD spoke with Surgical eval for diverticular bleed
[2017-05-03] MEDS ORDERED: POTASSIUM CHLORIDE TABS 20 MEQ TABLET.ER (FP) PO ONE (11:20)
--- NOTE | 2017-05-03 11:45 | PN ---
Progress Note, Physician Chief Complaint: Pt A&Ox3, but had syncopal episode while having a bowel movement. His says she caught him, and he did not hit his head.He recovered after a few seconds. History of Present Illness: The patient is a 71 year old male (b. [facility]), with a significant past medical history of HTN and CAD with cardiac stent, who presents to the emergency department with rectal bleeding, lower abdominal pain, nausea, vomiting and dizziness onset today. He reports that he had a total of 3 bowel movements that were bloody in nature. He reports mild abdominal pain on the left side of his body, ranging from mild to moderate, without radiation or modifying factors. He notes that after a vomiting episode his abdominal pain resolved. He describes his vomit as nonbloody and nonbilious. He reports that he has never had a colonoscopy. The patient denies chest pain, shortness of breath, headache, fever, chills, diarrhea and constipation. Denies dysuria, frequency, urgency and hematuria. Allergies: Past surgical history: Knee surgery, eye surgery (Cataracts and Glaucoma) Social history: No alcohol, tobacco or drug use reported PMD - Dr. Gallito Mackenzie - Current Medication List Current Medications: Active Medications Atorvastatin Calcium (Lipitor -) 10 mg PO HS [facility] Last Admin: 05/02/17 22:23 Dose: 10 mg Sodium Chloride (Normal Saline -) 1,000 mls @ 80 mls/hr IV [facility] Latanoprost (Xalatan 0.005% Eye Drops -) 1 drop OU HS [facility] Last Admin: 05/02/17 22:26 Dose: 1 drop Lisinopril (Prinivil) 20 mg PO DAILY [facility] Last Admin: 05/03/17 10:23 Dose: 20 mg Metoprolol Succinate (Toprol Xl -) 25 mg PO DAILY [facility] Last Admin: 05/03/17 10:24 Dose: 25 mg Pantoprazole Sodium (Protonix -) 40 mg PO BID [facility] Last Admin: 05/03/17 10:24 Dose: 40 mg - Objective Vital Signs: Vital Signs Temperature 98.4 F 05/03/17 10:00 Pulse Rate 86 05/03/17 10:00 Respiratory Rate 20 05/03/17 10:00 Blood Pressure 132/60 05/03/17 10:00 O2 Sat by Pulse Oximetry (%) 99 05/02/17 21:00 Constitutional: Yes: Well Nourished Eyes: Yes: WNL HENT: Yes: WNL Neck: Yes: WNL Cardiovascular: Yes: Regular Rate and Rhythm Respiratory: Yes: WNL Gastrointestinal: Yes: Soft, Distention, Hyperactive Bowel Sounds ...Rectal Exam: Yes: Deferred Genitourinary: No: Anuria Musculoskeletal: Yes: WNL Extremities: Yes: WNL Edema: No Peripheral Pulses WNL: Yes Integumentary: Yes: WNL Neurological: Yes: Other (syncope) Psychiatric: Yes: WNL Labs: CBC, BMP 05/03/17 06:00 05/03/17 06:00 INR, PTT INR 1.03 (0.82-1.09) 04/29/17 23:50 - ....Imaging EKG: Image Reviewed (NSR: LVH; repolarization chagnes; T wave inversions (no significant changes)) Problem List - Problems (1) Gastrointestinal hemorrhage with melena Assessment/Plan: acute anemia; rectal bleed. For colonoscopy and endoscopy today.; Code(s): K92.1 - MELENA (2) HTN (hypertension) Assessment/Plan: on linisopril and metoprolol Code(s): I10 - ESSENTIAL (PRIMARY) HYPERTENSION (3) Stented coronary artery Code(s): Z95.5 - PRESENCE OF CORONARY ANGIOPLASTY IMPLANT AND GRAFT (4) Hyperlipidemia Code(s): E78.5 - HYPERLIPIDEMIA, UNSPECIFIED (5) Syncope Assessment/Plan: likely vagal secondary to dehydration, anemia, associated with bowel movement. Maintain hydration; PRBCs, if necessary. F/u orthostatic VS. Code(s): R55 - SYNCOPE AND COLLAPSE
--- NOTE | 2017-05-03 11:57 | PN ---
Progress Note, Physician Chief Complaint: Pt A&Ox3, no further syncope; feels weak, and continues to have bright red blood in stool. History of Present Illness: The patient is a 71 year old male (b. [facility]), with a significant past medical history of HTN and CAD with cardiac stent, who presents to the emergency department with rectal bleeding, lower abdominal pain, nausea, vomiting and dizziness onset today. He reports that he had a total of 3 bowel movements that were bloody in nature. He reports mild abdominal pain on the left side of his body, ranging from mild to moderate, without radiation or modifying factors. He notes that after a vomiting episode his abdominal pain resolved. He describes his vomit as nonbloody and nonbilious. He reports that he has never had a colonoscopy. The patient denies chest pain, shortness of breath, headache, fever, chills, diarrhea and constipation. Denies dysuria, frequency, urgency and hematuria. Allergies: Past surgical history: Knee surgery, eye surgery (Cataracts and Glaucoma) Social history: No alcohol, tobacco or drug use reported PMD - Dr. Gallito Mackenzie - Current Medication List Current Medications: Active Medications Atorvastatin Calcium (Lipitor -) 10 mg PO HS [facility] Last Admin: 05/02/17 22:23 Dose: 10 mg Sodium Chloride (Normal Saline -) 1,000 mls @ 80 mls/hr IV ASDIR [facility] Latanoprost (Xalatan 0.005% Eye Drops -) 1 drop OU HS [facility] Last Admin: 05/02/17 22:26 Dose: 1 drop Lisinopril (Prinivil) 20 mg PO DAILY [facility] Last Admin: 05/03/17 10:23 Dose: 20 mg Metoprolol Succinate (Toprol Xl -) 25 mg PO DAILY [facility] Last Admin: 05/03/17 10:24 Dose: 25 mg Pantoprazole Sodium (Protonix -) 40 mg PO BID [facility] Last Admin: 05/03/17 10:24 Dose: 40 mg - Objective Vital Signs: Vital Signs Temperature 98.4 F 05/03/17 10:00 Pulse Rate 86 05/03/17 10:00 Respiratory Rate 20 05/03/17 10:00 Blood Pressure 132/60 05/03/17 10:00 O2 Sat by Pulse Oximetry (%) 100 05/03/17 09:00 Constitutional: Yes: Anxious Eyes: Yes: WNL HENT: Yes: WNL Neck: Yes: WNL Cardiovascular: Yes: WNL Respiratory: Yes: WNL Gastrointestinal: Yes: Soft, Tenderness, Epigastrium ...Rectal Exam: Yes: Deferred Genitourinary: No: Anuria Musculoskeletal: Yes: Muscle Weakness Extremities: Yes: WNL Edema: No Peripheral Pulses WNL: Yes Integumentary: Yes: WNL, Other (pallid palms) Neurological: Yes: WNL Psychiatric: Yes: WNL Labs: CBC, BMP 05/03/17 06:00 05/03/17 06:00 INR, PTT INR 1.03 (0.82-1.09) 04/29/17 23:50 Problem List - Problems (1) Gastrointestinal hemorrhage with melena Assessment/Plan: acute anemia; rectal bleed. Diverticulitis; Pt agrees to receive PRBCs. Await surgical consultation. Code(s): K92.1 - MELENA (2) HTN (hypertension) Assessment/Plan: on linisopril and metoprolol Code(s): I10 - ESSENTIAL (PRIMARY) HYPERTENSION (3) Stented coronary artery Code(s): Z95.5 - PRESENCE OF CORONARY ANGIOPLASTY IMPLANT AND GRAFT (4) Hyperlipidemia Assessment/Plan: on lipitor. Code(s): E78.5 - HYPERLIPIDEMIA, UNSPECIFIED (5) Syncope Assessment/Plan: likely vagal secondary to dehydration, anemia, associated with bowel movement. Pt agrees to recfeive PRBCs. F/u orthostatic VS. Code(s): R55 - SYNCOPE AND COLLAPSE (6) Hypokalemia Assessment/Plan: replete K+; f/u all electrolytes. Code(s): E87.6 - HYPOKALEMIA
--- NOTE | 2017-05-03 15:48 | PN ---
GI Progress Note Subjective: GI F/U FOR DR RICARDO PT HAVING BRBPR TODAY NO N/V/F/C/S NO CP OR SOB NO DIZZYNESS OR DIAPHORESIS HAD 2bm WITH BLOOD - Objective Vital Signs: Vital Signs Temperature 98.4 F 05/03/17 10:00 Pulse Rate 86 05/03/17 10:00 Respiratory Rate 20 05/03/17 10:00 Blood Pressure 132/60 05/03/17 10:00 O2 Sat by Pulse Oximetry (%) 100 05/03/17 09:00 Constitutional: Well Nourished, No Distress, Calm Eyes: Yes: WNL (+bs/ SOFT/ nt TO PALPATION NO m/r/g) Labs: CBC, BMP 05/03/17 06:00 05/03/17 06:00 INR, PTT INR 1.03 (0.82-1.09) 04/29/17 23:50 Assessment/Plan 71M YO M WITH CONTINUED LGIB/BRBPR WITH DROP IN HGB HAD EGD YESTERDAY AND COLONOSCOPY WITH MAIN FINDING OF SEVERE DIVERTICULOSIS AND BLOOD BRIGHT RED IN THE COLON PER THE REPORT NOW APPEARS TO HAVE ONGOING BLEEDING, BUT HEMODYNE STABLE GETTING PRBC'S AT THIS TIME APPEARS TO BE A DIVERTICULAR BLEED AND WILL OBTAIN A CT ANGIOGRAM TO ASSESS BLEEDING LOCATION----D/W RADIOLOGIST MANAGER ATHLETICS ALSO AGREE WWITH SURGICAL CONSULTATION TO BE ABOARD WELL HAVE SPOKEN WITH AND DAUGHTER ATY BEDSIDE WHO UNDERSTAND THE PLAN AND RISKS OF CONTINUED BLEEDING AND THAT HE MAY NEED ADDITIONAL IMAGING AND TREATMENT HE HAS BEEN OF PLAVIX FOR 4 MONTHS, HAS A STENT BUT HAS BEEN ON ASA IF BLEEDING PERSISTS AFTER PRBC'S THEN COULD CONSIDER IV OCTREOTIDE AT 50/UG/HR F/U CBC Q 12 HOURS MD TESFAYE
[2017-05-03] MEDS ORDERED: SODIUM CHLORIDE 500 ML IV ONE (19:45)
[2017-05-03 20:22] LABS: MCH 28.4 pg (25.7-33.7); MCHC 34.4 g/dl (32.0-35.9); MEAN CELL VOLUME 82.6 fl (80-96); MEAN PLT VOLUME 8.8 fl (7.5-11.1); PLATELET COUNT 153 K/MM3 (134-434); RDW 14.5 % (11.9-15.9)
--- NOTE | 2017-05-03 20:37 | RAPID ---
Physical Examination Vital Signs: Vital Signs Temperature 97.2 F L 05/03/17 19:15 Pulse Rate 99 H 05/03/17 19:47 Respiratory Rate 20 05/03/17 19:47 Blood Pressure 114/49 05/03/17 19:47 O2 Sat by Pulse Oximetry (%) 100 05/03/17 09:00 Constitutional: Yes: No Distress, Calm Eyes: Yes: Conjunctiva Clear, EOM Intact, PERRL HENT: Yes: Atraumatic, Normocephalic Neck: Yes: Supple Cardiovascular: Yes: Regular Rate and Rhythm Respiratory: Yes: Regular, CTA Bilaterally Gastrointestinal: Yes: Soft. No: Tenderness Extremities: Yes: WNL Edema: No Peripheral Pulses WNL: Yes Neurological: Yes: Alert, Oriented, Cran Nerves II-XII Intact. No: Confusion Psychiatric: Yes: Alert, Oriented Labs: CBC, BMP 05/03/17 20:00 05/03/17 06:00 Rapid Response - Rapid Response Assessment: 71 yr old man with active LGIB who completed CTA earlier this afternoon who syncopized after having bright red bloody bowel movement. family was at bedside. he awoke quickly, BP at time of examination was 125/54 with HR of 100. He was alert and oriented appropriately, repeatedly saying he felt fine. no focal neurological deficits syncope in setting of low h/h, active bleeding and bowel movement, likely due to low volume. Outcome: Patient transferred to the ICU for closer monitoring due to repeated syncope. Recommendations/Interventions: ICU monitoring prbc transfusion repeat CBC monitoring for stable h/h primary team aware Critical Care Total Critical Care Time (in minutes): 31 Critical Care Statement: The care of this patient involved high complexity decision making to prevent further life threatening deterioration of the patient 's condition and/or to evaluate & treat vital organ system(s) failure or risk of failure.
--- NOTE | 2017-05-03 21:01 | CONSULT ---
Consult Consult Specialty:: Pulm/CCM Reason for Consultation:: LGIB, anemia - History of Present Illness History of Present Illness: This is a 71 yo man HTN, CAD s/p JOSÉ (OM2 during NSTEMI 2011) on ASA presented to ED with BRBPR x3 w/ associated nausea, vomiting (NBNB), lower abdominal pain and dizziness starting on day of admission. Initial Hgb: 13.2. He was started on PPI and GI consulted. His Hgb continued to down trend. He remained hemodynamically stable. EGD and c-scope were done showing severe diverticular disease w/ BRB seen c/w on going bleeding. He received PRBC x1 for continued Hgb drop 7.5. CTAP w/ contrast done. On day of ICU transfer a MANAGER REVIEW was called for syncope and hypotension (66/44) in the setting of blood BM. STAT CBC showed Hgb 6.4. PRBC ordered. IV placed. - History Source History Provided By: Patient, Family Member, Medical Record - Past Medical History Cardio/Vascular: Yes: CAD (s/p stent in 2011, denies [place]), HTN, Hyperlipdemia Gastrointestinal: Yes: Other (umbilical hernia) Additional Medical History: Glaucoma - Past Surgical History Past Surgical History: Yes: Arthrosocopy (right knee) - Alcohol/Substance Use Hx Alcohol Use: Yes (rare in holidays only) History of Substance Use: reports: None - Smoking History Smoking history: Never smoked Have you smoked in the past 12 months: No Aproximately how many cigarettes per day: 0 - Social History Usual Living Arrangement: With Spouse ADL: Independent Occupation: retired bus and route cdl driver History of Recent Travel: No Home Medications - Allergies Allergies/Adverse Reactions: Allergies Allergy/AdvReac Type Severity Reaction Status Date / Time No Known Drug Allergies Allergy Verified 05/18/14 08:46 - Home Medications Home Medications: Ambulatory Orders Atorvastatin Calcium 10 mg PO DAILY tablet 11/29/13 Aspirin [ASA -] 81 mg PO DAILY 04/26/14 Lisinopril [Prinivil -] 2.5 mg PO DAILY 04/26/14 Travoprost (Benzalkonium) [Travatan 0.004% Eye Drop] 1 drop OU HS 04/26/14 Nitroglycerin Sublingual [Nitrostat -] 0.4 mg SL PRN 04/27/14 Family Disease History - Family Disease History Family Disease History: Other: Father ( 55 valcoholic cirrhosis), Mother ( lived into her 90s), Brother (colon polyp) Review of Systems - Review of Systems Constitutional: reports: Weakness Gastrointestinal: reports: Abdominal Pain, Nausea, Other (BRBPR) Neurological: reports: Dizziness Physical Exam Vital Signs: Vital Signs Temperature 98.8 F 05/03/17 20:40 Pulse Rate 104 H 05/03/17 20:40 Respiratory Rate 15 05/03/17 20:40 Blood Pressure 146/64 05/03/17 20:40 O2 Sat by Pulse Oximetry (%) 100 05/03/17 20:41 Current Medications Atorvastatin Calcium (Lipitor -) [address] [facility] Last Admin: 05/02/17 22:23 Dose: 10 mg Sodium Chloride (Normal Saline -) 1,000 mls @ 80 mls/hr IV ASDIR [facility] Last Admin: 05/03/17 12:28 Dose: 80 mls/hr Latanoprost (Xalatan 0.005% Eye Drops -) [address] [facility] Last Admin: 05/02/17 22:26 Dose: 1 drop Lisinopril (Prinivil) [address] [facility] Last Admin: 05/03/17 10:23 Dose: 20 mg Metoprolol Succinate (Toprol Xl -) [address] [facility] Last Admin: 05/03/17 10:24 Dose: 25 mg Pantoprazole Sodium (Protonix -) [address] [facility] Last Admin: 05/03/17 10:24 Dose: 40 mg Constitutional: Yes: No Distress, Calm Eyes: Yes: EOM Intact HENT: Yes: Normocephalic Cardiovascular: Yes: Tachycardia, S1, S2 Respiratory: Yes: CTA Bilaterally Gastrointestinal: Yes: Normal Bowel Sounds, Soft, Rectal Bleeding ...Rectal Exam: Yes: Guaiac Positive Extremities: Yes: WNL Edema: No Neurological: Yes: Alert, Oriented, Cran Nerves II-XII Intact Psychiatric: Yes: Oriented Labs: CBCD WBC 8.0 K/mm3 (4.0-10.0) D 05/03/17 20:00 RBC 2.24 M/mm3 (4.00-5.60) L 05/03/17 20:00 Hgb 6.4 GM/dL (11.7-16.9) L* D 05/03/17 20:00 Hct 18.5 % (35.4-49) L 05/03/17 20:00 MCV 82.6 fl (80-96) 05/03/17 20:00 MCHC 34.4 g/dl (32.0-35.9) 05/03/17 20:00 RDW 14.5 % (11.9-15.9) D 05/03/17 20:00 Plt Count 153 K/MM3 (134-434) 05/03/17 20:00 MPV 8.8 fl (7.5-11.1) 05/03/17 20:00 CMP Sodium 141 mmol/L (136-145) 05/03/17 06:00 Potassium 3.4 mmol/L (3.5-5.1) L 05/03/17 06:00 Chloride 109 mmol/L (98-107) H 05/03/17 06:00 Carbon Dioxide 25 mmol/L (21-32) 05/03/17 06:00 Anion Gap 7 (8-16) L 05/03/17 06:00 BUN 6 mg/dL (7-18) L 05/03/17 06:00 Creatinine 0.7 mg/dL (0.7-1.3) 05/03/17 06:00 Creat Clearance w eGFR > 60 (>60) 04/29/17 23:50 Random Glucose 122 mg/dL (74-106) H 05/03/17 06:00 Calcium 7.4 mg/dL (8.5-10.1) L 05/03/17 06:00 Total Bilirubin 0.3 mg/dL (0.2-1.0) 04/29/17 23:50 AST 23 U/L (15-37) D 04/29/17 23:50 ALT 30 U/L (12-78) 04/29/17 23:50 Alkaline Phosphatase 88 U/L (45-117) 04/29/17 23:50 Total Protein 7.4 g/dl (6.4-8.2) 04/29/17 23:50 Albumin 3.9 g/dl (3.4-5.0) 04/29/17 23:50 Imaging - Results Cat Scan: Report Reviewed, Image Reviewed (reviewed with IR) Problem List - Problems (1) CAD (coronary artery disease) Code(s): I25.10 - ATHSCL HEART DISEASE OF [place] CORONARY ARTERY W/O ANG PCTRS (2) Gastrointestinal hemorrhage with melena Code(s): K92.1 - MELENA (3) Stented coronary artery Code(s): Z95.5 - PRESENCE OF CORONARY ANGIOPLASTY IMPLANT AND GRAFT (4) Syncope Code(s): R55 - SYNCOPE AND COLLAPSE (5) Anemia Code(s): D64.9 - ANEMIA, UNSPECIFIED (6) Bleeding Code(s): R58 - HEMORRHAGE, NOT ELSEWHERE CLASSIFIED Assessment/Plan 71 yo man with LGIB most likely diverticular in nature with severe anemia c/b vasovagal response -GI following -Surgery was consulted -Will call IR about possible intervention -transfuse for Hgb >7.0, INR <5.0, Platelets >50 -IV access: 2 large bore IV -Active type and screen -consider tagged RBC scan if unable to localize bleeding -cont PPI and octreotide gtt per GI -trend troponin -SCD for DVT prophylaxis -CBC q4-6hrs Boerem ACNP Pulm/CCM CCT: 35m
[2017-05-03] MEDS: ATORVASTATIN CA 10 MG TABLET (FP) PO SCH (21:16)
[2017-05-03 21:23] LABS: INR 1.16 (0.82-1.09); PROTHROMBIN TIME (PATIENT) 13.1 SEC (9.98-11.88)
[2017-05-03 21:46] LABS: ALBUMIN 2.4 g/dl (3.4-5.0); ALK PHOS 35 U/L (45-117); ANION GAP 7 (8-16); BILIRUBIN,TOTAL 0.5 mg/dL (0.2-1.0); CO2 24 mmol/L (21-32); CREATININE 0.7 mg/dL (0.7-1.3); GLUCOSE,RANDOM 139 mg/dL (74-106); SGOT/AST 17 U/L (15-37); SGPT/ALT 18 U/L (12-78); TOT PROT 4.2 g/dl (6.4-8.2)
[2017-05-03] MEDS: LATANOPROST 0.005% OPHTH SOLN 2.5ML BOTTLE OU SCH (21:46)
[2017-05-03 21:47] LABS: TROPONIN I 0.39 ng/ml (0.00-0.05)
[2017-05-03 21:48] LABS: CALCIUM 6.6 mg/dL (8.5-10.1)
[2017-05-03] MEDS ORDERED: CALCIUM GLUCONATE 10% - 1,000 MG/10 ML VIAL IVPB ONE (21:56)
[2017-05-03] MEDS: OCTREOTIDE ACETATE 1,200 MCG in DEXTROSE 5%-WATER - 488 ML IVPB SCH (23:06)
[2017-05-04 00:30] LABS: MCH 28.9 pg (25.7-33.7); MCHC 34.9 g/dl (32.0-35.9); MEAN CELL VOLUME 82.7 fl (80-96); MEAN PLT VOLUME 8.7 fl (7.5-11.1); PLATELET COUNT 131 K/MM3 (134-434); RDW 14.4 % (11.9-15.9)
[2017-05-04] MEDS: SODIUM CHLORIDE 1,000 ML IV SCH ×2 (05:20→12:10)
[2017-05-04 05:57] LABS: MCH 29.4 pg (25.7-33.7); MCHC 35.8 g/dl (32.0-35.9); MEAN CELL VOLUME 82.2 fl (80-96); MEAN PLT VOLUME 8.8 fl (7.5-11.1); PLATELET COUNT 129 K/MM3 (134-434); RDW 14.5 % (11.9-15.9)
[2017-05-04 06:35] LABS: ANION GAP 5 (8-16); CALCIUM 7.1 mg/dL (8.5-10.1); CO2 28 mmol/L (21-32); CREATININE 0.7 mg/dL (0.7-1.3); GLUCOSE,RANDOM 145 mg/dL (74-106)
--- NOTE | 2017-05-04 08:42 | PN ---
Progress Note, Physician Chief Complaint: Pt A&Ox3; anxious, after having 2nd syncopal event yesterday whlle at CT scan. No dizziness, chest pain, abdominal pain, or dyspnea presently. His is at bedside. History of Present Illness: The patient is a 71 year old male (b. [facility]), with a significant past medical history of HTN and CAD with cardiac stent, who presents to the emergency department with rectal bleeding, lower abdominal pain, nausea, vomiting and dizziness onset today. He reports that he had a total of 3 bowel movements that were bloody in nature. He reports mild abdominal pain on the left side of his body, ranging from mild to moderate, without radiation or modifying factors. He notes that after a vomiting episode his abdominal pain resolved. He describes his vomit as nonbloody and nonbilious. He reports that he has never had a colonoscopy. The patient denies chest pain, shortness of breath, headache, fever, chills, diarrhea and constipation. Denies dysuria, frequency, urgency and hematuria. Allergies: Past surgical history: Knee surgery, eye surgery (Cataracts and Glaucoma) Social history: No alcohol, tobacco or drug use reported PMD - Dr. Gallito Mcakenzie - Current Medication List Current Medications: Active Medications Atorvastatin Calcium (Lipitor -) 10 mg PO HS [facility] Last Admin: 05/03/17 21:16 Dose: Not Given Sodium Chloride (Normal Saline -) 1,000 mls @ 80 mls/hr IV [facility]IR [facility] Last Admin: 05/04/17 05:20 Dose: 80 mls/hr Octreotide Acetate 1,200 mcg/ (Dextrose) 500 mls @ 20.83 mls/hr IVPB [facility] PRN Reason: 50 MCG/HR Last Admin: 05/03/17 23:06 Dose: 20.83 mls/hr Latanoprost (Xalatan 0.005% Eye Drops -) 1 drop OU HS [facility] Last Admin: 05/03/17 21:46 Dose: 1 drop Lisinopril (Prinivil) 20 mg PO DAILY [facility] Last Admin: 05/03/17 10:23 Dose: 20 mg Metoprolol Succinate (Toprol Xl -) 25 mg PO DAILY [facility] Last Admin: 05/03/17 10:24 Dose: 25 mg Pantoprazole Sodium (Protonix -) 40 mg PO BID [facility] Last Admin: 05/03/17 21:16 Dose: Not Given - Objective Vital Signs: Vital Signs Temperature 98.7 F 05/04/17 08:00 Pulse Rate 83 05/04/17 08:00 Respiratory Rate 12 05/04/17 08:00 Blood Pressure 127/67 05/04/17 08:00 O2 Sat by Pulse Oximetry (%) 100 05/03/17 20:41 Constitutional: Yes: Anxious Eyes: Yes: WNL HENT: Yes: WNL Neck: Yes: WNL Cardiovascular: Yes: Regular Rate and Rhythm Respiratory: Yes: WNL Gastrointestinal: Yes: Soft, Tenderness, Epigastrium ...Rectal Exam: Yes: Deferred Genitourinary: No: Anuria Musculoskeletal: Yes: Muscle Weakness Extremities: Yes: WNL Edema: No Peripheral Pulses WNL: Yes Integumentary: Yes: WNL Neurological: Yes: WNL Psychiatric: Yes: WNL Labs: CBC, BMP 05/04/17 05:45 05/04/17 05:45 INR, PTT INR 1.16 (0.82-1.09) H 05/03/17 20:55 Abnormal Lab Results 05/03/17 05/03/17 05/03/17 06:00 06:00 12:09 RBC 2.48 L D Hgb 7.5 L D Hct 21.4 L D Plt Count PT with INR INR PTT (Actin FS) Potassium 3.4 L Chloride 109 H Anion Gap 7 L BUN 6 L Random Glucose 122 H Calcium 7.4 L Alkaline Phosphatase Troponin I Total Protein Albumin Crossmatch See Detail 05/03/17 05/03/17 05/03/17 20:00 20:55 20:55 RBC 2.24 L Hgb 6.4 L* D Hct 18.5 L Plt Count PT with INR INR PTT (Actin FS) Potassium 3.2 L Chloride 108 H Anion Gap 7 L BUN 5 L Random Glucose 139 H Calcium 6.6 L* Alkaline Phosphatase 35 L D Troponin I 0.39 H D Total Protein 4.2 L D Albumin 2.4 L D Crossmatch 05/03/17 05/04/17 05/04/17 20:55 00:10 05:45 RBC 2.69 L D 2.46 L Hgb 7.8 L D 7.3 L Hct 22.3 L D 20.2 L Plt Count 131 L 129 L PT with INR 13.10 H INR 1.16 H PTT (Actin FS) 24.0 L Potassium Chloride Anion Gap BUN Random Glucose Calcium Alkaline Phosphatase Troponin I Total Protein Albumin Crossmatch 05/04/17 05/04/17 05:45 05:45 RBC Hgb Hct Plt Count PT with INR INR PTT (Actin FS) Potassium Chloride 108 H Anion Gap 5 L BUN 4 L Random Glucose 145 H Calcium 7.1 L Alkaline Phosphatase Troponin I 0.48 H Total Protein Albumin Crossmatch - ....Imaging Other: Image Reviewed (telemetry: NSR; periods of mild sinus tachycardia) Problem List - Problems (1) Gastrointestinal hemorrhage with melena Assessment/Plan: acute anemia; rectal bleed. Awaits surgical consultation. Code(s): K92.1 - MELENA (2) HTN (hypertension) Assessment/Plan: on linisopril and metoprolol Code(s): I10 - ESSENTIAL (PRIMARY) HYPERTENSION (3) Stented coronary artery Code(s): Z95.5 - PRESENCE OF CORONARY ANGIOPLASTY IMPLANT AND GRAFT (4) Hyperlipidemia Assessment/Plan: on lipitor. Code(s): E78.5 - HYPERLIPIDEMIA, UNSPECIFIED (5) Syncope Assessment/Plan: 2nd event. Marked anemia, despite receving PRBCs. Code(s): R55 - SYNCOPE AND COLLAPSE (6) Hypokalemia Assessment/Plan: replete K+; f/u all electrolytes. Keep K 4-4.5; Mg 2-2.3; PO4>2.5. Code(s): E87.6 - HYPOKALEMIA
--- NOTE | 2017-05-04 08:59 | PN ---
Progress Note, Physician Chief Complaint: Events noted at bedside pt transferred to ICU for active GI bleeding He had CTA yesterday and syncopized-- Hb at that time was around 6 Received total 2 units PRBC so far No bm this AM - Current Medication List Current Medications: Active Medications Atorvastatin Calcium (Lipitor -) 10 mg PO HS [facility] Last Admin: 05/03/17 21:16 Dose: Not Given Sodium Chloride (Normal Saline -) 1,000 mls @ 80 mls/hr IV [facility] Last Admin: 05/04/17 05:20 Dose: 80 mls/hr Octreotide Acetate 1,200 mcg/ (Dextrose) 500 mls @ 20.83 mls/hr IVPB [facility] PRN Reason: 50 MCG/HR Last Admin: 05/03/17 23:06 Dose: 20.83 mls/hr Latanoprost (Xalatan 0.005% Eye Drops -) 1 drop OU HS [facility] Last Admin: 05/03/17 21:46 Dose: 1 drop Lisinopril (Prinivil) 20 mg PO DAILY [facility] Last Admin: 05/03/17 10:23 Dose: 20 mg Metoprolol Succinate (Toprol Xl -) 25 mg PO DAILY [facility] Last Admin: 05/03/17 10:24 Dose: 25 mg Pantoprazole Sodium (Protonix -) 40 mg PO BID [facility] Last Admin: 05/03/17 21:16 Dose: Not Given - Objective Vital Signs: Vital Signs Temperature 98.7 F 05/04/17 08:00 Pulse Rate 83 05/04/17 08:00 Respiratory Rate 12 05/04/17 08:00 Blood Pressure 127/67 05/04/17 08:00 O2 Sat by Pulse Oximetry (%) 100 05/03/17 20:41 Constitutional: Yes: No Distress, Pallor Cardiovascular: Yes: Regular Rate and Rhythm Respiratory: Yes: CTA Bilaterally Gastrointestinal: Yes: Normal Bowel Sounds, Soft, Abdomen, Obese. No: Distention, Tenderness Edema: No Labs: CBC, BMP 05/04/17 05:45 05/04/17 05:45 INR, PTT INR 1.16 (0.82-1.09) H 05/03/17 20:55 Problem List - Problems (1) Arteriosclerotic heart disease (ASHD) Code(s): I25.10 - ATHSCL HEART DISEASE OF [place] CORONARY ARTERY W/O ANG PCTRS (2) Gastrointestinal hemorrhage with melena Code(s): K92.1 - MELENA (3) CAD (coronary artery disease) Code(s): I25.10 - ATHSCL HEART DISEASE OF [place] CORONARY ARTERY W/O ANG PCTRS (4) HTN (hypertension) Code(s): I10 - ESSENTIAL (PRIMARY) HYPERTENSION (5) Anemia Code(s): D64.9 - ANEMIA, UNSPECIFIED (6) Bleeding Code(s): R58 - HEMORRHAGE, NOT ELSEWHERE CLASSIFIED (7) Hypovolemic shock Code(s): R57.1 - HYPOVOLEMIC SHOCK Assessment/Plan PLAN diverticular bleeding Had about 4 bloody BM yesterday, none this AM Agreed for transfusion-- will transfuse today protonix BID, octreotide drip dc Toprol and Lisinopril as BP is low and pt became orthostatic when he sat up this AM l check CBC Q12H DVT prophylaxis-- SCD spoke with Surgical eval for diverticular bleed -- spoke with DR Serrato today -- will come to see pt Time spent -- 30 min
[2017-05-04] MEDS: PANTOPRAZOLE 40 MG TABLET (FP) PO SCH ×2 (09:45→21:12)
[2017-05-04] MEDS: LISINOPRIL 20 MG TABLET (FP) PO SCH (09:46)
[2017-05-04] MEDS: METOPROLOL SUCCINATE 25 MG TAB.SR.24H (FP) PO SCH (09:47)
--- NOTE | 2017-05-04 10:57 | PN ---
Progress Note (short form) - Note Progress Note: PULM/CCM Pt seen and examined in ICU 24HR: -no further bleeding -2 PRBC overnight, most recent Hgb 7.3 -awake, alert, HD stable Vital Signs Temp 98.0 F 05/04/17 10:00 Pulse 78 05/04/17 10:00 Resp 16 05/04/17 10:00 BP 126/107 05/04/17 10:00 Pulse Ox 100 05/03/17 20:41 Intake & Output 05/03/17 05/03/17 05/04/17 11:59 23:59 11:59 Intake Total 2000 480 Output Total 2 1500 Balance 1997 Weight 75.41 kg Intake: IV 700 480 Normal Saline - 1,000 ml 700 480 @ 80 mls/hr IV [facility] Rx#:[id number] Oral 600 Packed Cells 700 Output: Urine 2 1500 Void 2 1500 Other: Voiding Method Toilet Urinal Urinal Weight Measurement Method Built in [facility] Active Medications Atorvastatin Calcium (Lipitor -) 10 mg PO HS [facility] Last Admin: 05/03/17 21:16 Dose: Not Given Sodium Chloride (Normal Saline -) 1,000 mls @ 80 mls/hr IV [facility] Last Admin: 05/04/17 05:20 Dose: 80 mls/hr Octreotide Acetate 1,200 mcg/ (Dextrose) 500 mls @ 20.83 mls/hr IVPB [facility] PRN Reason: 50 MCG/HR Last Admin: 05/03/17 23:06 Dose: 20.83 mls/hr Latanoprost (Xalatan 0.005% Eye Drops -) 1 drop OU HS [facility] Last Admin: 05/03/17 21:46 Dose: 1 drop Pantoprazole Sodium (Protonix -) 40 mg PO BID [facility] Last Admin: 05/04/17 09:45 Dose: 40 mg CBCD WBC 7.0 K/mm3 (4.0-10.0) 05/04/17 05:45 RBC 2.46 M/mm3 (4.00-5.60) L 05/04/17 05:45 Hgb 7.3 GM/dL (11.7-16.9) L 05/04/17 05:45 Hct 20.2 % (35.4-49) L 05/04/17 05:45 MCV 82.2 fl (80-96) 05/04/17 05:45 MCHC 35.8 g/dl (32.0-35.9) 05/04/17 05:45 RDW 14.5 % (11.9-15.9) 05/04/17 05:45 Plt Count 129 K/MM3 (134-434) L 05/04/17 05:45 MPV 8.8 fl (7.5-11.1) 05/04/17 05:45 CMP Sodium 141 mmol/L (136-145) 05/04/17 05:45 Potassium 3.8 mmol/L (3.5-5.1) 05/04/17 05:45 Chloride 108 mmol/L (98-107) H 05/04/17 05:45 Carbon Dioxide 28 mmol/L (21-32) 05/04/17 05:45 Anion Gap 5 (8-16) L 05/04/17 05:45 BUN 4 mg/dL (7-18) L 05/04/17 05:45 Creatinine 0.7 mg/dL (0.7-1.3) 05/04/17 05:45 Creat Clearance w eGFR > 60 (>60) 05/03/17 20:55 Calcium 7.1 mg/dL (8.5-10.1) L 05/04/17 05:45 Total Bilirubin 0.5 mg/dL (0.2-1.0) D 05/03/17 20:55 AST 17 U/L (15-37) D 05/03/17 20:55 ALT 18 U/L (12-78) D 05/03/17 20:55 Alkaline Phosphatase 35 U/L (45-117) L D 05/03/17 20:55 Total Protein 4.2 g/dl (6.4-8.2) L D 05/03/17 20:55 Albumin 2.4 g/dl (3.4-5.0) L D 05/03/17 20:55 Constitutional: Yes: No Distress, Calm Eyes: Yes: EOM Intact HENT: Yes: Normocephalic Cardiovascular: Yes: Tachycardia, S1, S2 Respiratory: Yes: CTA Bilaterally Gastrointestinal: Yes: Normal Bowel Sounds, Soft,, no pain to palp, no BM this am ...Rectal Exam: Yes: Guaiac Positive, no further hemmorrhage Extremities: Yes: WNL Edema: No Neurological: Yes: Alert, Oriented, Cran Nerves II-XII Intact Psychiatric: Yes: Oriented Imaging - Results Cat Scan: Report Reviewed, Image Reviewed (reviewed with IR) Problem List - Problems (1) CAD (coronary artery disease) Code(s): I25.10 - ATHSCL HEART DISEASE OF [place] CORONARY ARTERY W/O ANG PCTRS (2) Gastrointestinal hemorrhage with melena Code(s): K92.1 - MELENA (3) Stented coronary artery Code(s): Z95.5 - PRESENCE OF CORONARY ANGIOPLASTY IMPLANT AND GRAFT (4) Syncope Code(s): R55 - SYNCOPE AND COLLAPSE (5) Anemia Code(s): D64.9 - ANEMIA, UNSPECIFIED (6) Bleeding Code(s): R58 - HEMORRHAGE, NOT ELSEWHERE CLASSIFIED Assessment/Plan 71 yo man with LGIB most likely diverticular in nature with severe anemia c/b vasovagal response -GI following -Surgery following, appreciate Rec -Embo vs coloectomy if significant rebleed -transfuse for Hgb >7.0, INR <5.0, Platelets >50 -IV access: 2 large bore IV -Active type and screen -consider tagged RBC scan if unable to localize bleeding -cont PPI and octreotide gtt per GI -SCD for DVT prophylaxis -CBC q4-6hrs Marky COOK Pulm/CCM CCT: 35m
--- NOTE | 2017-05-04 11:19 | CONSULT ---
Consult Consult Specialty:: surgery Reason for Consultation:: GI bleeding - History of Present Illness Chief Complaint: bleeding per rectum History of Present Illness: 71 year old male, with a significant past medical history of HTN and CAD with cardiac stent, who presents to the emergency department with rectal bleeding, lower abdominal pain, nausea, vomiting and dizziness onset today. He reports that he had a total of 3 bowel movements that were bloody in nature. He reported initially mild abdominal pain on the left side of his body, ranging from mild to moderate. He notes that after a vomiting episode his abdominal pain resolved. He describes his vomit as nonbloody and nonbilious. Since Admission he has continued to bleed dropping his HGB from 13 to 6 , transfered to ICU for Hemodynamic instability and CTA done yesterday was negative for identifying site of bleeding. Upper and lower endoscopeis revealed superficial prepyloric ulcers and extensive diverticular disease. - History Source History Provided By: Patient Limitations to Obtaining History: No Limitations - Past Medical History Cardio/Vascular: Yes: CAD (s/p stent in 2011, denies [place]), HTN, Hyperlipdemia Gastrointestinal: Yes: Other (umbilical hernia) Additional Medical History: Glaucoma - Past Surgical History Past Surgical History: Yes: Arthrosocopy (right knee) - Alcohol/Substance Use Hx Alcohol Use: Yes (rare in holidays only) History of Substance Use: reports: None - Smoking History Smoking history: Never smoked Have you smoked in the past 12 months: No Aproximately how many cigarettes per day: 0 - Social History Usual Living Arrangement: With Spouse ADL: Independent Occupation: retired bus and motor bus driver History of Recent Travel: No Home Medications - Allergies Allergies/Adverse Reactions: Allergies Allergy/AdvReac Type Severity Reaction Status Date / Time No Known Drug Allergies Allergy Verified 05/18/14 08:46 - Home Medications Home Medications: Ambulatory Orders Atorvastatin Calcium 10 mg PO DAILY tablet 11/29/13 Aspirin [ASA -] 81 mg PO DAILY 04/26/14 Lisinopril [Prinivil -] 2.5 mg PO DAILY 04/26/14 Travoprost ([place]enz[place]) [Travatan 0.004% Eye Drop] 1 drop OU HS 04/26/14 Nitroglycerin Sublingual [Nitrostat -] 0.4 mg SL PRN 04/27/14 Family Disease History - Family Disease History Family Disease History: Other: Father ( 55 valcoholic cirrhosis), Mother ( lived into her 90s), Brother (colon polyp) Physical Exam Vital Signs: Vital Signs Temperature 98.0 F 05/04/17 10:00 Pulse Rate 78 05/04/17 10:00 Respiratory Rate 16 05/04/17 10:00 Blood Pressure 126/107 05/04/17 10:00 O2 Sat by Pulse Oximetry (%) 100 05/03/17 20:41 Labs: CBC, BMP 05/04/17 05:45 05/04/17 05:45 Imaging - Results Cat Scan: Report Reviewed, Image Reviewed Other: Report Reviewed (endoscopy reports), Image Reviewed Problem List - Problems (1) Bleeding Code(s): R58 - HEMORRHAGE, NOT ELSEWHERE CLASSIFIED Assessment/Plan 71 yr old male with CAD, HTN on ASA hospital Day 4 for a major lower GI bleeding most likely secondary to diverticular disease. However patient has pandiverticulosis. Recommendations Continue with close observation Consider repeat CTA if patient rebleeds surgical intervention if patient experiences extensive bleeding w/o hemodynamic instability. Identification of site of bleeding would be ideal in order to avoid extensive resection Will stay on stand by
[2017-05-04 12:15] LABS: MCH 29.3 pg (25.7-33.7); MCHC 35.8 g/dl (32.0-35.9); MEAN CELL VOLUME 82.1 fl (80-96); MEAN PLT VOLUME 8.2 fl (7.5-11.1); PLATELET COUNT 125 K/MM3 (134-434); RDW 14.4 % (11.9-15.9)
--- NOTE | 2017-05-04 13:22 | PN ---
GI Progress Note Subjective: GI F/U NOTE FOR DR RICARDO EVENTS OF LAST MANDEEP NOTED AND HAD D/W DR LO LAST EVENING WHO INFORMED ME THAT MR GARCIAS HAD A VASOVAGAL EPISODE AFTER CT SCAN CTA DID NOT REVEAL AN ACTIVE BLEEDING FOCUS PT HAS NOT HAD A BM SINCE LAST EVENING AND REPORTS THAT HE FEELS WELL AND IS READY TO "GO DANCING" HE IS NOW GETTING HIS 3RD UNIT OF PRBC'S AND IS HGB HAD DROPPED TO 6.4 YESTERDAY. HE IS HUNGRY BUT UNDERSTANDS THAT HE MUST REMAIN NPO HE DENIES N/V/F/C/S NO ABD PAIN - Objective Vital Signs: Vital Signs Temperature 98.0 F 05/04/17 10:00 Pulse Rate 83 05/04/17 12:00 Respiratory Rate 16 05/04/17 12:00 Blood Pressure 134/71 05/04/17 12:00 O2 Sat by Pulse Oximetry (%) 100 05/03/17 20:41 Constitutional: Well Nourished, No Distress, Calm Eyes: Yes: WNL (+BS/ VERY SOFT/ NT NO MASSES OR REBOUND) Labs: CBC, BMP 05/04/17 12:00 05/04/17 05:45 INR, PTT INR 1.16 (0.82-1.09) H 05/03/17 20:55 Assessment/Plan 71 YO M WITH ASCAD WHO HAD BEEN ON ASA NOTED TO HAVE LGIB, LIKELY DIVERTICULAR IN ETIOLOGY HAD BRISK BLEEDING x 2 YESTERDAY WHICH APPEARS TO HAVE RESOLVED HE HAD A VASOVAGAL EPISODE AFTER CTA EXAM (WHICH FAILED TO REVEAL SITE OF ACTIVE BLEEDING) HE HAS BEEN HEMODYNE STABLE NOT TACCYCARDIC AND WITHOUT COMPLAINTS AT THIS TIME HGB NOW STABLE AND GETTING 3RD UNIT PRBC'S HAVE ADDED IV OCTREOTIDE WHICH HAS SHOWN HELPFUL IN [employer] REPORTS AND IS WITHOUT SIDE EFFECTS APRRECIATE SURGICAL CONSULTATION AND AGREE WITH PLAN OUTLINED RECC: NPO/ F/U CBC Q8 IV OCTREOTIDE OBSERVATION ICU CARE PT SEEN AND EXAMINED AND PLAN DISCUSSED IN DETAIL WITH PT AND DAUGHTER PRESENT WHO SERVED TRANSLALTOR MD TESFAYE
[2017-05-04 18:53] LABS: MCH 28.3 pg (25.7-33.7); MCHC 34.5 g/dl (32.0-35.9); MEAN PLT VOLUME 8.8 fl (7.5-11.1); PLATELET COUNT 140 K/MM3 (134-434); RDW 15.6 % (11.9-15.9); WHITE BLOOD COUNT 10.4 K/mm3 (4.0-10.0)
[2017-05-04] MEDS: ATORVASTATIN CA 10 MG TABLET (FP) PO SCH (21:11)
[2017-05-04] MEDS: LATANOPROST 0.005% OPHTH SOLN 2.5ML BOTTLE OU SCH (21:12)
[2017-05-04] MEDS: OCTREOTIDE ACETATE 1,200 MCG in DEXTROSE 5%-WATER - 488 ML IVPB SCH (22:55)
[2017-05-05 05:49] LABS: MCH 28.5 pg (25.7-33.7); MCHC 35.1 g/dl (32.0-35.9); MEAN CELL VOLUME 81.1 fl (80-96); MEAN PLT VOLUME 8.9 fl (7.5-11.1); PLATELET COUNT 136 K/MM3 (134-434); RDW 15.8 % (11.9-15.9); WHITE BLOOD COUNT 7.4 K/mm3 (4.0-10.0)
[2017-05-05 06:06] LABS: ALBUMIN 2.4 g/dl (3.4-5.0); ANION GAP 9 (8-16); BILIRUBIN,TOTAL 0.5 mg/dL (0.2-1.0); CO2 28 mmol/L (21-32); CREATININE 0.7 mg/dL (0.7-1.3); GLUCOSE,RANDOM 126 mg/dL (74-106); SGOT/AST 25 U/L (15-37); SGPT/ALT 24 U/L (12-78); TOT PROT 4.6 g/dl (6.4-8.2)
[2017-05-05 06:07] LABS: ALK PHOS 39 U/L (45-117)
[2017-05-05] MEDS: PANTOPRAZOLE 40 MG TABLET (FP) PO SCH ×2 (09:39→21:08)
[2017-05-05] MEDS: SODIUM CHLORIDE 1,000 ML IV SCH (10:00)
--- NOTE | 2017-05-05 10:15 | EKG ---
Test Reason : Blood Pressure : / mmHG Vent. Rate : 078 BPM Atrial Rate : 078 BPM P-R Int : 148 ms QRS Dur : 076 ms QT Int : 362 ms P-R-T Axes : 029 -04 122 degrees QTc Int : 412 ms NORMAL SINUS RHYTHM MODERATE VOLTAGE CRITERIA FOR LVH, MAY BE NORMAL VARIANT T WAVE ABNORMALITY, CONSIDER LATERAL ISCHEMIA ABNORMAL ECG WHEN COMPARED WITH ECG OF 02-MAY-2017 05:34, NO SIGNIFICANT CHANGE WAS FOUND Confirmed by ROJAS TAVAREZ, PAOLA ([id number]) on 05/05/2017 10:14:54 AM Referred By: Regan PRATER Confirmed By:PAOLA XIE MD
--- NOTE | 2017-05-05 10:17 | EKG ---
Test Reason : Blood Pressure : / mmHG Vent. Rate : 064 BPM Atrial Rate : 064 BPM P-R Int : 154 ms QRS Dur : 076 ms QT Int : 416 ms P-R-T Axes : 028 -11 118 degrees QTc Int : 429 ms NORMAL SINUS RHYTHM LEFT VENTRICULAR HYPERTROPHY WITH REPOLARIZATION ABNORMALITY ABNORMAL ECG WHEN COMPARED WITH ECG OF 30-APR-2017 00:03, NO SIGNIFICANT CHANGE WAS FOUND Confirmed by PAOLA XIE MD ([id number]) on 05/05/2017 10:16:56 AM Referred By: Confirmed By:PAOLA XIE MD
--- NOTE | 2017-05-05 10:50 | PN ---
Progress Note (short form) - Note Progress Note: Pt seen/ examined today in icu-- sitting in chair events noted at bedside denies any blood last night denies pain. taking liquids now afebrile Vital Signs Temp 98.6 F 05/05/17 06:00 Pulse 75 05/05/17 06:00 Resp 11 L 05/05/17 06:00 BP 144/62 05/05/17 06:00 Pulse Ox 100 05/03/17 20:41 Intake & Output 05/04/17 05/04/17 05/05/17 11:59 23:59 11:59 Intake Total 480 1310 1200 Output Total 1500 3100 1500 Balance -1020 -1790 -300 Weight 166 lb 4 oz 160 lb 3.2 oz Intake: IV 200 089 9950 Normal Saline - 1,000 ml 480 720 960 @ 80 mls/hr IV ASDIR EUGENE Rx#:[id number] octreotide 240 240 Packed Cells 350 Output: Urine 1500 3100 1500 Void 1500 3100 1500 Other: Voiding Method Urinal Urinal Weight Measurement Method [facility] Active Medications Atorvastatin Calcium (Lipitor -) 10 mg PO HS EUGENE Last Admin: 05/04/17 21:11 Dose: 10 mg Sodium Chloride (Normal Saline -) 1,000 mls @ 80 mls/hr IV ASDIR EUGENE Last Admin: 05/04/17 12:10 Dose: Not Given Octreotide Acetate 1,200 mcg/ (Dextrose) 500 mls @ 20.83 mls/hr IVPB ASDIR EUGENE PRN Reason: 50 MCG/HR Last Admin: 05/04/17 22:55 Dose: 20.83 mls/hr Latanoprost (Xalatan 0.005% Eye Drops -) 1 drop OU HS EUGENE Last Admin: 05/04/17 21:12 Dose: 1 drop Pantoprazole Sodium (Protonix -) 40 mg PO BID EUGENE Last Admin: 05/05/17 09:39 Dose: 40 mg CBC, BMP 05/05/17 05:00 05/05/17 05:00 Physical Exam. Constitutional: Yes: No Distress, comfortable. sitting in chair. Cardiovascular: Yes: Regular Rate and Rhythm. Respiratory: Yes: CTA Bilaterally. Gastrointestinal: Yes: Normal Bowel Sounds, Soft, Abdomen, Obese. No: Distention, Tenderness Edema: No Neuro- Aox3 Problem List - Problems (1) Arteriosclerotic heart disease (ASHD) Code(s): I25.10 - ATHSCL HEART DISEASE OF [place] CORONARY ARTERY W/O ANG PCTRS (2) Gastrointestinal hemorrhage with melena Code(s): K92.1 - MELENA (3) CAD (coronary artery disease) Code(s): I25.10 - ATHSCL HEART DISEASE OF [place] CORONARY ARTERY W/O ANG PCTRS (4) HTN (hypertension) Code(s): I10 - ESSENTIAL (PRIMARY) HYPERTENSION (5) Anemia Code(s): D64.9 - ANEMIA, UNSPECIFIED (6) Bleeding Code(s): R58 - HEMORRHAGE, NOT ELSEWHERE CLASSIFIED (7) Hypovolemic shock Code(s): R57.1 - HYPOVOLEMIC SHOCK Assessment/Plan Stable Started on liquids diverticular bleed monitor closely transfuse prn continue present meds Gi following surgery on case close monitoring Discussed with pts in detail again today. will follow. Time spent -- 30 min
[2017-05-05] MEDS ORDERED: POTASSIUM CHLORIDE TABS 20 MEQ TABLET.ER (FP) PO ONE (12:01)
--- NOTE | 2017-05-05 12:35 | PN ---
Teaching Attending Note Name of Resident: George Cherry ATTENDING PHYSICIAN STATEMENT I saw and evaluated the patient. I reviewed the resident's note and discussed the case with the resident. I agree with the resident's findings and plan as documented. SUBJECTIVE: Patient seen and examined in the ICU. Awake and alert. No CP or SOB. Endoscopic reports noted. No clear source of bleeding. No abdominal pain. No BM this AM. Intake & Output 05/02/17 05/03/17 05/04/17 05/05/17 23:59 23:59 23:59 23:59 Intake Total 3817 2000 1790 1200 Output Total 4 2 4600 1500 Balance 3813 1998 -2810 -300 Weight 166 lb 4 oz 160 lb 3.2 oz Last Vital Signs Temp Pulse Resp BP Pulse Ox 98.6 F 82 15 144/73 100 05/05/17 06:00 05/05/17 10:00 05/05/17 09:00 05/05/17 10:00 05/03/17 20:41 Active Medications Atorvastatin Calcium (Lipitor -) 10 mg PO HS EUGENE Last Admin: 05/04/17 21:11 Dose: 10 mg Sodium Chloride (Normal Saline -) 1,000 mls @ 80 mls/hr IV ASDIR EUGENE Last Admin: 05/04/17 12:10 Dose: Not Given Octreotide Acetate 1,200 mcg/ (Dextrose) 500 mls @ 20.83 mls/hr IVPB ASDIR EUGENE PRN Reason: 50 MCG/HR Last Admin: 05/04/17 22:55 Dose: 20.83 mls/hr Latanoprost (Xalatan 0.005% Eye Drops -) 1 drop OU HS EUGENE Last Admin: 05/04/17 21:12 Dose: 1 drop Pantoprazole Sodium (Protonix -) 40 mg PO BID EUGENE Last Admin: 05/05/17 09:39 Dose: 40 mg Constitutional: Yes: Awake and alert, NAD Eyes: Yes: () Icterus, (-)Pallor HENT: Yes: Normocephalic Cardiovascular: Yes: S1, S2 Respiratory: Yes: CTA Bilaterally Gastrointestinal: Yes: Normal Bowel Sounds, Soft,, no pain to palpation, no BM this AM Extremities: Yes: WNL Edema: No Neurological: Yes: Alert, Oriented, Non-focal Psychiatric: Yes: Oriented Laboratory Results - last 24 hr 05/04/17 05/05/17 05/05/17 18:00 05:00 05:00 WBC 10.4 H D 7.4 RBC 3.26 L D 2.79 L Hgb 9.2 L D 8.0 L D Hct 26.7 L D 22.6 L D MCV 82.0 81.1 MCH 28.3 28.5 MCHC 34.5 35.1 RDW 15.6 15.8 Plt Count 140 136 MPV 8.8 8.9 Sodium 142 Potassium 3.3 L Chloride 105 Carbon Dioxide 28 Anion Gap 9 BUN 6 L D Creatinine 0.7 Creat Clearance w eGFR > 60 Random Glucose 126 H Calcium 7.0 L Total Bilirubin 0.5 AST 25 D ALT 24 D Alkaline Phosphatase 39 L Total Protein 4.6 L Albumin 2.4 L Problem List - Problems (1) CAD (coronary artery disease) Code(s): I25.10 - ATHSCL HEART DISEASE OF [place] CORONARY ARTERY W/O ANG PCTRS (2) Gastrointestinal hemorrhage with melena Code(s): K92.1 - MELENA (3) Stented coronary artery Code(s): Z95.5 - PRESENCE OF CORONARY ANGIOPLASTY IMPLANT AND GRAFT (4) Syncope Code(s): R55 - SYNCOPE AND COLLAPSE (5) Anemia Code(s): D64.9 - ANEMIA, UNSPECIFIED (6) Bleeding Code(s): R58 - HEMORRHAGE, NOT ELSEWHERE CLASSIFIED Assessment/Plan Normal transfusion thresholds O2 as needed Monitor for BM Monitor H&H Maintain IV access: 2 large bore IV May need repeat imaging if recurrent bleeding PPI and octreotide drips per GI : will discuss further need SCD for DVT prophylaxis Trial of clears Continued ICU monitoring Dr Razo Critical care time spent in reviewing chart, evaluating patient and formulating plan - 36 minutes.
--- NOTE | 2017-05-05 13:25 | PN ---
Progress Note, Physician History of Present Illness: The patient is a 71 year old male, with a significant past medical history of HTN and CAD with cardiac stent, who presents to the emergency department with rectal bleeding, lower abdominal pain, nausea, vomiting and dizziness onset today. He reports that he had a total of 3 bowel movements that were bloody in nature. He reports mild abdominal pain on the left side of his body, ranging from mild to moderate, without radiation or modifying factors. He notes that after a vomiting episode his abdominal pain resolved. He describes his vomit as nonbloody and nonbilious. He reports that he has never had a colonoscopy. The patient denies chest pain, shortness of breath, headache, fever, chills, diarrhea and constipation. Denies dysuria, frequency, urgency and hematuria. Allergies: Past surgical history: Knee surgery, eye surgery (Cataracts and Glaucoma) Social history: No alcohol, tobacco or drug use reported PMD - Dr. Gallito Mackenzie [facility] drug-eluting stent of OM2 during NSTEMI (10/15/11) Ongoing medical problems BPH erectile dysfunction glaucoma HTN hyperlipidemia NSTEMI 10/15/2011-->Coronary angiogram: 3VD, with JOSÉ of OM2 (LAD prox 30%;mid40 %;distal 50%; D1 95% inf branch; OM1 30%;OM2 98%-->JOSÉ; RCA prox 40%;mid 30%; RPDA 30%; RPLS 98% tandem) obesity occasional headaches (?related to glaucoma) - Current Medication List Current Medications: Active Medications Atorvastatin Calcium (Lipitor -) 10 mg PO HS EUGENE Last Admin: 05/04/17 21:11 Dose: 10 mg Sodium Chloride (Normal Saline -) 1,000 mls @ 80 mls/hr IV ASDIR EUGENE Last Admin: 05/05/17 10:00 Dose: 80 mls/hr Octreotide Acetate 1,200 mcg/ (Dextrose) 500 mls @ 20.83 mls/hr IVPB ASDIR EUGENE PRN Reason: 50 MCG/HR Last Admin: 05/04/17 22:55 Dose: 20.83 mls/hr Latanoprost (Xalatan 0.005% Eye Drops -) 1 drop OU HS EUGENE Last Admin: 05/04/17 21:12 Dose: 1 drop Pantoprazole Sodium (Protonix -) 40 mg PO BID EUGENE Last Admin: 05/05/17 09:39 Dose: 40 mg - Objective Vital Signs: Vital Signs Temperature 98.6 F 05/05/17 06:00 Pulse Rate 82 05/05/17 10:00 Respiratory Rate 15 05/05/17 09:00 Blood Pressure 144/73 05/05/17 10:00 O2 Sat by Pulse Oximetry (%) 100 05/03/17 20:41 Eyes: Yes: WNL, Conjunctiva Clear, EOM Intact HENT: Yes: WNL, Atraumatic, Normocephalic Neck: Yes: WNL, Supple, Trachea Midline Cardiovascular: Yes: WNL, Regular Rate and Rhythm Respiratory: Yes: WNL, Regular, CTA Bilaterally Gastrointestinal: Yes: WNL, Normal Bowel Sounds Genitourinary: Yes: WNL Musculoskeletal: Yes: WNL Extremities: Yes: WNL Edema: No Integumentary: Yes: WNL Neurological: Yes: WNL, Alert, Oriented ...Motor Strength: WNL Psychiatric: Yes: WNL Labs: CBC, BMP 05/05/17 05:00 05/05/17 05:00 INR, PTT INR 1.16 (0.82-1.09) H 05/03/17 20:55 Problem List - Problems (1) Arteriosclerotic heart disease (ASHD) Code(s): I25.10 - ATHSCL HEART DISEASE OF [place] CORONARY ARTERY W/O ANG PCTRS (2) CAD (coronary artery disease) Code(s): I25.10 - ATHSCL HEART DISEASE OF [place] CORONARY ARTERY W/O ANG PCTRS (3) Family history of colonic polyps Code(s): Z83.71 - FAMILY HISTORY OF COLONIC POLYPS (4) Gastrointestinal hemorrhage with melena Code(s): K92.1 - MELENA (5) HTN (hypertension) Code(s): I10 - ESSENTIAL (PRIMARY) HYPERTENSION (6) Rectal bleeding Code(s): K62.5 - HEMORRHAGE OF ANUS AND RECTUM (7) Stented coronary artery Code(s): Z95.5 - PRESENCE OF CORONARY ANGIOPLASTY IMPLANT AND GRAFT (8) Vomiting Code(s): R11.10 - VOMITING, UNSPECIFIED (9) Head injury Code(s): S09.90XA - UNSPECIFIED INJURY OF HEAD, INITIAL ENCOUNTER (10) Whiplash Code(s): S13.4XXA - SPRAIN OF LIGAMENTS OF CERVICAL SPINE, INITIAL ENCOUNTER Assessment/Plan - Problems (1) Gastrointestinal hemorrhage with melena Assessment/Plan: acute anemia; rectal bleed. Awaits surgical consultation. Code(s): K92.1 - MELENA (2) HTN (hypertension) Assessment/Plan: on linisopril and metoprolol Code(s): I10 - ESSENTIAL (PRIMARY) HYPERTENSION (3) Stented coronary artery Code(s): Z95.5 - PRESENCE OF CORONARY ANGIOPLASTY IMPLANT AND GRAFT (4) Hyperlipidemia Assessment/Plan: on lipitor. Code(s): E78.5 - HYPERLIPIDEMIA, UNSPECIFIED (5) Syncope Assessment/Plan: 2nd event. Marked anemia, despite receving PRBCs. Code(s): R55 - SYNCOPE AND COLLAPSE (6) Hypokalemia Assessment/Plan: replete K+; f/u all electrolytes. Keep K 4-4.5; Mg 2-2.3; PO4>2.5. Code(s): E87.6 - HYPOKALEMIA CC time spent 36 min
[2017-05-05 13:43] LABS: MCHC 34.2 g/dl (32.0-35.9); MEAN CELL VOLUME 81.7 fl (80-96); MEAN PLT VOLUME 8.1 fl (7.5-11.1); PLATELET COUNT 168 K/MM3 (134-434); WHITE BLOOD COUNT 7.9 K/mm3 (4.0-10.0)
--- NOTE | 2017-05-05 14:50 | PN ---
Physical Exam: SUBJECTIVE: Patient seen and examined at bedside. Overnight, pt afebrile. Today pt denies dizziness, LOC, blurry vision, chest pain, or RODGERS. States that he is extremely hungry. Pt had a BM this afternoon (~ 2pm) w/o any bleeding. Has been started on clear liquid diet. OBJECTIVE: Vital Signs Period Temp Pulse Resp BP Sys/[place] Pulse Ox Last 24 Hr 98.2 F-98.8 F 72-92 11-18 111-144/56-91 GENERAL: The patient is awake, alert, and fully oriented, in no acute distress. Sitting up in chair, accompanied by daughter and . HEAD: Normal with no signs of trauma. EYES: PERRL, extraocular movements intact, sclera anicteric, conjunctiva clear. NECK: Trachea midline, full range of motion, supple. LUNGS: Breath sounds equal, clear to auscultation bilaterally, no wheezes, no crackles, no accessory muscle use. HEART: Regular rate and rhythm, S1, S2 without murmur, rub or gallop. ABDOMEN: Soft, nontender, nondistended, normoactive bowel sounds, no guarding, no rebound EXTREMITIES: 2+ posterior tibial pulses, warm, well-perfused, no edema. NEUROLOGICAL: Cranial nerves II through XII grossly intact. Laboratory Results - last 24 hr 05/04/17 05/05/17 05/05/17 18:00 05:00 05:00 WBC 10.4 H D 7.4 RBC 3.26 L D 2.79 L Hgb 9.2 L D 8.0 L D Hct 26.7 L D 22.6 L D MCV 82.0 81.1 MCH 28.3 28.5 MCHC 34.5 35.1 RDW 15.6 15.8 Plt Count 140 136 MPV 8.8 8.9 Sodium 142 Potassium 3.3 L Chloride 105 Carbon Dioxide 28 Anion Gap 9 BUN 6 L D Creatinine 0.7 Creat Clearance w eGFR > 60 Random Glucose 126 H Calcium 7.0 L Total Bilirubin 0.5 AST 25 D ALT 24 D Alkaline Phosphatase 39 L Total Protein 4.6 L Albumin 2.4 L 05/05/17 13:40 WBC 7.9 RBC 3.26 L Hgb 9.1 L D Hct 26.7 L D MCV 81.7 MCH 28.0 MCHC 34.2 RDW 16.0 H Plt Count 168 D MPV 8.1 Sodium Potassium Chloride Carbon Dioxide Anion Gap BUN Creatinine Creat Clearance w eGFR Random Glucose Calcium Total Bilirubin AST ALT Alkaline Phosphatase Total Protein Albumin Active Medications Generic Name Dose Route Start Last Admin Trade Name Holly PRN Reason Stop Dose Admin Atorvastatin Calcium 10 mg 05/01/17 22:00 05/04/17 21:11 Lipitor - PO 10 mg HS EUGENE Administration Sodium Chloride 1,000 mls @ 80 mls/hr 05/03/17 11:03 05/05/17 10:00 Normal Saline - IV 80 mls/hr ASDIR EUGENE Administration Octreotide Acetate 1,200 mcg/ 500 mls @ 20.83 mls/hr 05/03/17 22:45 05/04/17 22 :55 Dextrose IVPB 20.83 mls/hr ASDIR EUGENE Administration 50 MCG/HR Latanoprost 1 drop 04/30/17 22:00 05/04/17 21:12 Xalatan 0.005% Eye Drops - OU 1 drop HS EUGENE Administration Pantoprazole Sodium 40 mg 05/02/17 22:00 05/05/17 09:39 Protonix - PO 40 mg BID EUGENE Administration ASSESSMENT/PLAN: 71 y/o M with history of HTN, CAD, on aspirin, who came to the ED with three episodes of BRBPR a/w with nausea, vomiting, lower abdominal pain, dizziness of day of the admission. Transferred to the ICU after rapid response for syncope and hypotension, in setting of bloody bowel movement. # GI hx of: BRBPR on admission, received 3 units PRBCs -pt feels well, BP stable (120-144/ 57-74 mmHg), no dizziness, or blurred vision -endoscopy- no clear source of bleeding identified -had BM this afternoon at ~2pm, without blood -pt on octreotide 50 mcg/hr currently -Continue protonix 40mg PO BID -spoke to Dr. Kat, will wait for Dr. Gonzalez to see pt to determine whether octreotide still needed -CTA will be repeated if rebleeds -pt started on clear liquid diet -Will follow GI recs -F/u CBC at 5pm #CARDIO HLD -Continue lipitor (off prinivil, and toprol) #F/E/N -K+ 3.3 - has been repleted with 40 mEq Kdur -clear liquid diet, has been tolerating #DVT Prophylaxis SCD's Disposition continue to monitor pt in ICU Visit type - Emergency Visit Emergency Visit: No - New Patient This patient is new to me today: Yes Date on this admission: 05/05/17 - Critical Care Critical Care patient: Yes Total Critical Care Time (in minutes): 32 Critical Care Statement: The care of this patient involved high complexity decision making to prevent further life threatening deterioration of the patient 's condition and/or to evaluate & treat vital organ system(s) failure or risk of failure.
--- NOTE | 2017-05-05 15:22 | PN ---
Progress Note, Physician History of Present Illness: Feeling well no further episodes of bleeding - Current Medication List Current Medications: Active Medications Atorvastatin Calcium (Lipitor -) 10 mg PO HS EUGENE Last Admin: 05/04/17 21:11 Dose: 10 mg Sodium Chloride (Normal Saline -) 1,000 mls @ 80 mls/hr IV ASDIR EUGENE Last Admin: 05/05/17 10:00 Dose: 80 mls/hr Octreotide Acetate 1,200 mcg/ (Dextrose) 500 mls @ 20.83 mls/hr IVPB ASDIR EUGENE PRN Reason: 50 MCG/HR Last Admin: 05/04/17 22:55 Dose: 20.83 mls/hr Latanoprost (Xalatan 0.005% Eye Drops -) 1 drop OU HS EUGENE Last Admin: 05/04/17 21:12 Dose: 1 drop Pantoprazole Sodium (Protonix -) 40 mg PO BID EUGENE Last Admin: 05/05/17 09:39 Dose: 40 mg - Objective Vital Signs: Vital Signs Temperature 98.6 F 05/05/17 06:00 Pulse Rate 82 05/05/17 10:00 Respiratory Rate 15 05/05/17 09:00 Blood Pressure 144/73 05/05/17 10:00 O2 Sat by Pulse Oximetry (%) 100 05/03/17 20:41 Labs: CBC, BMP 05/05/17 13:40 05/05/17 05:00 INR, PTT INR 1.16 (0.82-1.09) H 05/03/17 20:55 Problem List - Problems (1) Bleeding Code(s): R58 - HEMORRHAGE, NOT ELSEWHERE CLASSIFIED Assessment/Plan 71 yr old male with CAD, HTN on [facility] hospital Day 4 for a major lower GI bleeding most likely secondary to diverticular disease. However patient has pandiverticulosis. Recommendations Continue with close observation Consider repeat CTA if patient rebleeds surgical intervention hopefully can be avoided Clear liquids Will stay on stand by
[2017-05-05 17:58] LABS: MCH 28.2 pg (25.7-33.7); MCHC 34.3 g/dl (32.0-35.9); MEAN CELL VOLUME 82.1 fl (80-96); MEAN PLT VOLUME 8.7 fl (7.5-11.1); PLATELET COUNT 160 K/MM3 (134-434); RDW 15.8 % (11.9-15.9); WHITE BLOOD COUNT 6.7 K/mm3 (4.0-10.0)
[2017-05-05] MEDS ORDERED: PT OWN MED DRAWER 7, Y5N ONE ×2 (19:33→21:06)
[2017-05-05] MEDS: LATANOPROST 0.005% OPHTH SOLN 2.5ML BOTTLE OU SCH (21:08)
[2017-05-05] MEDS: ATORVASTATIN CA 10 MG TABLET (FP) PO SCH (21:08)
[2017-05-05 22:15] LABS: MCH 28.3 pg (25.7-33.7); MCHC 34.2 g/dl (32.0-35.9); MEAN CELL VOLUME 82.6 fl (80-96); MEAN PLT VOLUME 8.9 fl (7.5-11.1); RDW 16.1 % (11.9-15.9); WHITE BLOOD COUNT 7.2 K/mm3 (4.0-10.0)
[2017-05-05] MEDS: OCTREOTIDE ACETATE 1,200 MCG in DEXTROSE 5%-WATER - 488 ML IVPB SCH (23:10)
[2017-05-06 05:40] LABS: MCH 28.6 pg (25.7-33.7); MCHC 35.1 g/dl (32.0-35.9); MEAN CELL VOLUME 81.4 fl (80-96); MEAN PLT VOLUME 8.4 fl (7.5-11.1); PLATELET COUNT 173 K/MM3 (134-434); WHITE BLOOD COUNT 5.9 K/mm3 (4.0-10.0)
[2017-05-06 06:05] LABS: ANION GAP 9 (8-16); CALCIUM 7.5 mg/dL (8.5-10.1); CO2 29 mmol/L (21-32); CREATININE 0.7 mg/dL (0.7-1.3); GLUCOSE,RANDOM 127 mg/dL (74-106)
--- NOTE | 2017-05-06 09:00 | PN ---
Physical Exam: SUBJECTIVE: Patient seen and examined at bedside. 24 hr events -no acute events overnight -most recent Hb (this AM): 8.6 (down from 8.8)- however improved overall Today -feels well, denies dizziness, chest pain, LOC, syncope, wants to go home -pt stable, for transfer to med-surg today. Order is in OBJECTIVE: Vital Signs Period Temp Pulse Resp BP Sys/[place] Pulse Ox Last 24 Hr 98.4 F-98.7 F 69-108 15-20 116-149/54-101 99 GENERAL: The patient is awake, alert, and fully oriented, in no acute distress. Resting in bed HEAD: Normal with no signs of trauma. EYES: PERRL, extraocular movements intact, sclera anicteric, conjunctiva clear. NECK: Trachea midline, supple. LUNGS: Breath sounds equal, clear to auscultation bilaterally, no wheezes, no crackles HEART: Regular rate and rhythm, S1, S2 without murmur, rub or gallop. ABDOMEN: Soft, nontender, nondistended, normoactive bowel sounds, no guarding EXTREMITIES: 2+ posterior tibial pulses, warm, well-perfused, no edema. NEUROLOGICAL: Cranial nerves II through XII grossly intact. Laboratory Results - last 24 hr 05/05/17 05/05/17 05/05/17 13:40 16:30 21:35 WBC 7.9 6.7 7.2 RBC 3.26 L 3.02 L 3.13 L Hgb 9.1 L D 8.5 L 8.8 L Hct 26.7 L D 24.8 L 25.8 L MCV 81.7 82.1 82.6 MCH 28.0 28.2 28.3 MCHC 34.2 34.3 34.2 RDW 16.0 H 15.8 16.1 H Plt Count 168 D 160 No Result Required. MPV 8.1 8.7 8.9 Platelet Comment Slt plt clumping Sodium Potassium Chloride Carbon Dioxide Anion Gap BUN Creatinine Random Glucose Calcium Ferritin 05/06/17 05/06/17 05/06/17 05:00 05:00 05:00 WBC 5.9 RBC 3.00 L Hgb 8.6 L Hct 24.4 L MCV 81.4 MCH 28.6 MCHC 35.1 RDW 16.0 H Plt Count 173 MPV 8.4 Platelet Comment Sodium 143 Potassium 3.6 Chloride 105 Carbon Dioxide 29 Anion Gap 9 BUN 4 L D Creatinine 0.7 Random Glucose 127 H Calcium 7.5 L Ferritin 56.440 Active Medications Generic Name Dose Route Start Last Admin Trade Name Holly PRN Reason Stop Dose Admin Atorvastatin Calcium 10 mg 05/01/17 22:00 05/05/17 21:08 Lipitor - PO 10 mg HS EUGENE Administration Sodium Chloride 1,000 mls @ 80 mls/hr 05/03/17 11:03 05/05/17 10:00 Normal Saline - IV 80 mls/hr ASDIR EUGENE Administration Octreotide Acetate 1,200 mcg/ 500 mls @ 20.83 mls/hr 05/03/17 22:45 05/05/17 23 :10 Dextrose IVPB 20.83 mls/hr ASDIR EUGENE Administration 50 MCG/HR Latanoprost 1 drop 04/30/17 22:00 05/05/17 21:08 Xalatan 0.005% Eye Drops - OU 1 drop HS EUGENE Administration Pantoprazole Sodium 40 mg 05/02/17 22:00 05/05/17 21:08 Protonix - PO 40 mg BID EUGENE Administration ASSESSMENT/PLAN: 71 y/o M with history of HTN, CAD, on aspirin, who came to the ED with three episodes of BRBPR a/w with nausea, vomiting, lower abdominal pain, dizziness of day of the admission. Transferred to the ICU after rapid response for syncope and hypotension, in setting of bloody bowel movement. # GI hx of: BRBPR on admission, received 3 units PRBCs -pt feels well, BP stable, no dizziness, or blurred vision -endoscopy- no clear source of bleeding identified -last BM yesterday afternoon at ~2pm, without blood -most recent Hb 8.6 (this AM) -pt's octreotide has been d/c by GI -continue protonix 40mg PO BID -for transfer today out of ICU to med-surg, order is in -CTA will be repeated if rebleeds -pt on soft diet, see if tolerating -Continue to follow CBC -Will follow GI recs #CARDIO HLD -Continue Lipitor (off prinivil, and toprol) #F/E/N -K+ WNL currently -soft diet #DVT Prophylaxis SCD's Disposition Hb currently stable, for transfer out of ICU to med-surg Visit type - Emergency Visit Emergency Visit: No - New Patient This patient is new to me today: No - Critical Care Critical Care patient: Yes Total Critical Care Time (in minutes): 40 Critical Care Statement: The care of this patient involved high complexity decision making to prevent further life threatening deterioration of the patient 's condition and/or to evaluate & treat vital organ system(s) failure or risk of failure.
[2017-05-06] MEDS: PANTOPRAZOLE 40 MG TABLET (FP) PO SCH ×2 (09:02→21:27)
--- NOTE | 2017-05-06 09:55 | PN ---
Progress Note, Physician Chief Complaint: no bleeding since weekend Feels well no distress tolerating clear liquids - Current Medication List Current Medications: Active Medications Atorvastatin Calcium (Lipitor -) 10 mg PO HS EUGENE Last Admin: 05/05/17 21:08 Dose: 10 mg Sodium Chloride (Normal Saline -) 1,000 mls @ 80 mls/hr IV ASDIR EUGENE Last Admin: 05/05/17 10:00 Dose: 80 mls/hr Octreotide Acetate 1,200 mcg/ (Dextrose) 500 mls @ 20.83 mls/hr IVPB ASDIR EUGENE PRN Reason: 50 MCG/HR Last Admin: 05/05/17 23:10 Dose: 20.83 mls/hr Latanoprost ([place] 0.005% Eye Drops -) 1 drop OU HS EUGENE Last Admin: 05/05/17 21:08 Dose: 1 drop Pantoprazole Sodium (Protonix -) 40 mg PO BID EUGENE Last Admin: 05/06/17 09:02 Dose: 40 mg - Objective Vital Signs: Vital Signs Temperature 98.5 F 05/06/17 06:00 Pulse Rate 74 05/06/17 08:00 Respiratory Rate 15 05/06/17 08:00 Blood Pressure 143/82 05/06/17 08:00 O2 Sat by Pulse Oximetry (%) 99 05/05/17 19:23 Constitutional: Yes: No Distress Cardiovascular: Yes: Regular Rate and Rhythm Respiratory: Yes: CTA Bilaterally Gastrointestinal: Yes: Normal Bowel Sounds, Soft, Abdomen, Obese. No: Distention, Tenderness Edema: No Labs: CBC, BMP 05/06/17 05:00 05/06/17 05:00 INR, PTT INR 1.16 (0.82-1.09) H 05/03/17 20:55 Problem List - Problems (1) Arteriosclerotic heart disease (ASHD) Code(s): I25.10 - ATHSCL HEART DISEASE OF [place] CORONARY ARTERY W/O ANG PCTRS (2) Gastrointestinal hemorrhage with melena Code(s): K92.1 - MELENA (3) CAD (coronary artery disease) Code(s): I25.10 - ATHSCL HEART DISEASE OF [place] CORONARY ARTERY W/O ANG PCTRS (4) HTN (hypertension) Code(s): I10 - ESSENTIAL (PRIMARY) HYPERTENSION (5) Anemia Code(s): D64.9 - ANEMIA, UNSPECIFIED (6) Bleeding Code(s): R58 - HEMORRHAGE, NOT ELSEWHERE CLASSIFIED (7) Hypovolemic shock Code(s): R57.1 - HYPOVOLEMIC SHOCK Assessment/Plan PLAN diverticular bleeding no further bleeding protonix BID, octreotide drip check CBC Q12H DVT prophylaxis-- SCD spoke with Surgical eval noted ok to transfer to floor GI follow up with regards to Octreotide drip and advancing diet
--- NOTE | 2017-05-06 11:35 | PN ---
Teaching Attending Note Name of Resident: Lilia Montemayor ATTENDING PHYSICIAN STATEMENT I saw and evaluated the patient. I reviewed the resident's note and discussed the case with the resident. I agree with the resident's findings and plan as documented. SUBJECTIVE: Patient seen and examined in the ICU. Awake and alert. No CP or SOB. No occult bleeding noted. No abdominal pain. Tolerated PO intake. Intake & Output 05/03/17 05/04/17 05/05/17 05/06/17 23:59 23:59 23:59 23:59 Intake Total 1999 1790 3712.2 866.4 Output Total 4600 3450 1775 Balance 1997 262.2 -908.6 Weight 166 lb 4 oz 160 lb 3.2 oz 159 lb Last Vital Signs Temp Pulse Resp BP Pulse Ox 98.6 F 76 15 148/77 99 05/06/17 10:00 05/06/17 10:00 05/06/17 10:00 05/06/17 10:00 05/05/17 19:23 Active Medications Atorvastatin Calcium (Lipitor -) 10 mg PO HS [facility] Latanoprost (Xalatan 0.005% Eye Drops -) 1 drop OU HS [facility] Pantoprazole Sodium (Protonix -) 40 mg PO BID [facility] Constitutional: Yes: Awake and alert, NAD Eyes: Yes: () Icterus, (-)Pallor HENT: Yes: Normocephalic Cardiovascular: Yes: S1, S2 Respiratory: Yes: CTA Bilaterally Gastrointestinal: Yes: Normal Bowel Sounds, Soft,, no pain to palpation, no BM this AM Extremities: Yes: WNL Edema: No Neurological: Yes: Alert, Oriented, Non-focal Psychiatric: Yes: Oriented Laboratory Results - last 24 hr 05/04/17 05/05/17 05/05/17 18:00 05:00 05:00 WBC 10.4 H D 7.4 RBC 3.26 L D 2.79 L Hgb 9.2 L D 8.0 L D Hct 26.7 L D 22.6 L D MCV 82.0 81.1 MCH 28.3 28.5 MCHC 34.5 35.1 RDW 15.6 15.8 Plt Count 140 136 MPV 8.8 8.9 Sodium 142 Potassium 3.3 L Chloride 105 Carbon Dioxide 28 Anion Gap 9 BUN 6 L D Creatinine 0.7 Creat Clearance w eGFR > 60 Random Glucose 126 H Calcium 7.0 L Total Bilirubin 0.5 AST 25 D ALT 24 D Alkaline Phosphatase 39 L Total Protein 4.6 L Albumin 2.4 L Problem List - Problems (1) CAD (coronary artery disease) Code(s): I25.10 - ATHSCL HEART DISEASE OF [place] CORONARY ARTERY W/O ANG PCTRS (2) Gastrointestinal hemorrhage with melena Code(s): K92.1 - MELENA (3) Stented coronary artery Code(s): Z95.5 - PRESENCE OF CORONARY ANGIOPLASTY IMPLANT AND GRAFT (4) Syncope Code(s): R55 - SYNCOPE AND COLLAPSE (5) Anemia Code(s): D64.9 - ANEMIA, UNSPECIFIED (6) Bleeding Code(s): R58 - HEMORRHAGE, NOT ELSEWHERE CLASSIFIED Assessment/Plan Normal transfusion thresholds O2 as needed Monitor for BM Monitor H&H Maintain IV access: 2 large bore IV PPI and octreotide drips per GI : will discuss further need SCD for DVT prophylaxis PO as tolerated Floor Dr Razo Critical care time spent in reviewing chart, evaluating patient and formulating plan - 36 minutes.
--- NOTE | 2017-05-06 13:22 | PN ---
Progress Note (short form) - Note Progress Note: no further bleeding HCt stable Advance diet continue observation Problem List - Problems (1) Bleeding Code(s): R58 - HEMORRHAGE, NOT ELSEWHERE CLASSIFIED
--- NOTE | 2017-05-06 13:59 | PATH ---
Surgical Pathology Report Patient Name: DOMINGUEZ GARCIAS Med. Rec. #: [id number] /Age/Gender: 1945 (Age: 71) / M Account: [id number] Location: ICU DIRECTOR OF CUSTOMER SERVICE Taken: 05/02/2017 Received: 05/05/2017 Reported: 05/06/2017 Physicians: Chelsey Tipton M.D. Specimen(s) Received A: BX 2ND PORTION OF DUODENUM AND DUODENAL BULB B: BX ANTRUM Clinical History GI bleed, melena Gastric ulcers, gastritis, colon diverticuli Final Diagnosis A. DUODENUM, SECOND PORTION AND DUODENAL BULB, BIOPSY: SMALL BOWEL/ DUODENAL MUCOSA WITHOUT SIGNIFICANT PATHOLOGIC CHANGE. B. STOMACH, ANTRUM, BIOPSY: GASTRIC ANTRAL MUCOSA WITH MODERATE TO SEVERE CHRONIC ACTIVE GASTRITIS. IMMUNOHISTOCHEMICAL STAIN FOR H. PYLORI IS POSITIVE. Electronically Signed Lazara Worthington M.D. Gross Description A. Received in formalin, labeled "biopsy second portion of duodenum and duodenal bulb" are 3 [place], irregular portions of soft tissue ranging from 0.3-0.5 cm. in greatest dimension. The specimens are submitted in toto in one cassette. B. Received in formalin, labeled "biopsy antrum" are 4 [place], irregular portions of soft tissue ranging from 0.1-0.4 cm. in greatest dimension. The specimens are submitted in toto in one cassette. DL/05/05/2017 saudi05/05/2017
[2017-05-06 15:59] LABS: MCH 28.8 pg (25.7-33.7); MCHC 34.7 g/dl (32.0-35.9); MEAN CELL VOLUME 83.2 fl (80-96); MEAN PLT VOLUME 8.7 fl (7.5-11.1); PLATELET COUNT 201 K/MM3 (134-434); RDW 15.8 % (11.9-15.9); WHITE BLOOD COUNT 7.4 K/mm3 (4.0-10.0)
--- NOTE | 2017-05-06 18:54 | PN ---
GI Progress Note Subjective: GI NOte: The diverticular bleeding appears to have subsided and the octreotide has been stopped and diet advanced. Temo denies abdominal pain and tolerated dinner well. - Objective Vital Signs: Vital Signs Temperature 98.3 F 05/06/17 17:08 Pulse Rate 68 05/06/17 16:00 Respiratory Rate 16 05/06/17 16:00 Blood Pressure 140/84 05/06/17 16:00 O2 Sat by Pulse Oximetry (%) 99 05/05/17 19:23 Constitutional: No Distress Eyes: Yes: Conjunctiva Clear ...Auscultate: Yes: Normoactive Bowel Sounds ...Palpate: Yes: Soft, Other (nontender) Labs: CBC, BMP 05/06/17 15:30 05/06/17 05:00 INR, PTT INR 1.16 (0.82-1.09) H 05/03/17 20:55 Laboratory Tests 05/06/17 05/06/17 05/06/17 05:00 05:00 15:30 Hgb 8.6 L 10.0 L D Hct 24.4 L 28.9 L D MCV 83.2 Ferritin 56.440 Problem List - Problems (1) Rectal bleeding Assessment/Plan: Resolved diverticular hemorrhage. Doubt that his gastric ulcers are large enough to have caused this bleeding but would continue pantoprazole until seen in our office. I communicated with Dr Vicente earlier. Code(s): K62.5 - HEMORRHAGE OF ANUS AND RECTUM (2) Vomiting Code(s): R11.10 - VOMITING, UNSPECIFIED (3) Family history of colonic polyps Code(s): Z83.71 - FAMILY HISTORY OF COLONIC POLYPS (4) Arteriosclerotic heart disease (ASHD) Code(s): I25.10 - ATHSCL HEART DISEASE OF [place] CORONARY ARTERY W/O ANG PCTRS (5) Stented coronary artery Code(s): Z95.5 - PRESENCE OF CORONARY ANGIOPLASTY IMPLANT AND GRAFT
[2017-05-06] MEDS ORDERED: ATORVASTATIN CA 10 MG TABLET (FP) PO SCH (22:00)
[2017-05-06] MEDS ORDERED: LATANOPROST 0.005% OPHTH SOLN 2.5ML BOTTLE OU SCH (22:00)
[2017-05-07 05:53] VITALS: PULSE 74
[2017-05-07 07:38] LABS: MCH 28.6 pg (25.7-33.7); MCHC 34.5 g/dl (32.0-35.9); MEAN CELL VOLUME 82.9 fl (80-96); MEAN PLT VOLUME 8.3 fl (7.5-11.1); PLATELET COUNT 215 K/MM3 (134-434); RDW 15.7 % (11.9-15.9); WHITE BLOOD COUNT 8.8 K/mm3 (4.0-10.0)
[2017-05-07 08:08] LABS: SERUM IRON 31 ug/dL (38-169); TOTAL IRON BINDING CAPACITY 225 ug/dL (250-450); UIBC 194 ug/dL (111-343)
--- NOTE | 2017-05-07 09:43 | PN ---
Progress Note, Physician Chief Complaint: Pt A&Ox3; oob in simth; no chest pain or dyspnea. Frightneed becasue he developed hypotension earlier. History of Present Illness: The patient is a 71 year old male (b. [facility]), with a significant past medical history of HTN and CAD with cardiac stent, who presents to the emergency department with rectal bleeding, lower abdominal pain, nausea, vomiting and dizziness onset today. He reports that he had a total of 3 bowel movements that were bloody in nature. He reports mild abdominal pain on the left side of his body, ranging from mild to moderate, without radiation or modifying factors. He notes that after a vomiting episode his abdominal pain resolved. He describes his vomit as nonbloody and nonbilious. He reports that he has never had a colonoscopy. The patient denies chest pain, shortness of breath, headache, fever, chills, diarrhea and constipation. Denies dysuria, frequency, urgency and hematuria. Allergies: Past surgical history: Knee surgery, eye surgery (Cataracts and Glaucoma) Social history: No alcohol, tobacco or drug use reported PMD - Dr. Gallito Mackenzie - Current Medication List Current Medications: Active Medications Atorvastatin Calcium (Lipitor -) 10 mg PO HS [facility] Last Admin: 05/06/17 21:27 Dose: 10 mg Latanoprost (Xalatan 0.005% Eye Drops -) 1 drop OU HS [facility] Last Admin: 05/06/17 21:27 Dose: 1 drop Pantoprazole Sodium (Protonix -) 40 mg PO BID [facility] Last Admin: 05/06/17 21:27 Dose: 40 mg - Objective Vital Signs: Vital Signs Temperature 97.9 F 05/07/17 05:53 Pulse Rate 74 05/07/17 05:53 Respiratory Rate 20 05/07/17 05:53 Blood Pressure 139/64 05/07/17 05:53 O2 Sat by Pulse Oximetry (%) 99 05/05/17 19:23 Constitutional: Yes: Anxious Eyes: Yes: WNL HENT: Yes: WNL Neck: Yes: WNL Cardiovascular: Yes: Regular Rate and Rhythm, S1, S2 Respiratory: Yes: Regular Gastrointestinal: Yes: Soft ...Rectal Exam: Yes: Deferred Genitourinary: No: Anuria Breast(s): Yes: WNL Musculoskeletal: Yes: Muscle Weakness Extremities: Yes: Cool Edema: No Peripheral Pulses WNL: Yes Integumentary: Yes: WNL Neurological: Yes: WNL Labs: CBC, BMP 05/07/17 06:25 05/06/17 05:00 INR, PTT INR 1.16 (0.82-1.09) H 05/03/17 20:55 - ....Imaging Other: Image Reviewed (telemetry: NSR) Problem List - Problems (1) Gastrointestinal hemorrhage with melena Assessment/Plan: acute anemia; rectal bleed. On observation; f/u with surgeon and GI. Code(s): K92.1 - MELENA (2) HTN (hypertension) Assessment/Plan: on linisopril and metoprolol; held for low BP, though now again elevated. Check orthostatic S; cautiously restart meds one at a time. Code(s): I10 - ESSENTIAL (PRIMARY) HYPERTENSION (3) Stented coronary artery Code(s): Z95.5 - PRESENCE OF CORONARY ANGIOPLASTY IMPLANT AND GRAFT (4) Hyperlipidemia Assessment/Plan: on lipitor. Code(s): E78.5 - HYPERLIPIDEMIA, UNSPECIFIED (5) Syncope Assessment/Plan: 2nd event. Marked anemia, despite receving PRBCs. Code(s): R55 - SYNCOPE AND COLLAPSE (6) Hypokalemia Assessment/Plan: replete K+; f/u all electrolytes. Keep K 4-4.5; Mg 2-2.3; PO4>2.5. Code(s): E87.6 - HYPOKALEMIA
[2017-05-07] MEDS: PANTOPRAZOLE 40 MG TABLET (FP) PO SCH (09:46)
--- NOTE | 2017-05-07 10:05 | PN ---
Progress Note, Physician Chief Complaint: see dc summary - Current Medication List Current Medications: Active Medications Atorvastatin Calcium (Lipitor -) 10 mg PO HS [facility] Last Admin: 05/06/17 21:27 Dose: 10 mg Latanoprost (Xalatan 0.005% Eye Drops -) 1 drop OU HS [facility] Last Admin: 05/06/17 21:27 Dose: 1 drop Pantoprazole Sodium (Protonix -) 40 mg PO BID [facility] Last Admin: 05/07/17 09:46 Dose: 40 mg - Objective Vital Signs: Vital Signs Temperature 97.9 F 05/07/17 05:53 Pulse Rate 74 05/07/17 05:53 Respiratory Rate 20 05/07/17 05:53 Blood Pressure 139/64 05/07/17 05:53 O2 Sat by Pulse Oximetry (%) 99 05/05/17 19:23 Labs: CBC, BMP 05/07/17 06:25 05/06/17 05:00 INR, PTT INR 1.16 (0.82-1.09) H 05/03/17 20:55 Problem List - Problems (1) Arteriosclerotic heart disease (ASHD) Code(s): I25.10 - ATHSCL HEART DISEASE OF [place] CORONARY ARTERY W/O ANG PCTRS (2) Gastrointestinal hemorrhage with melena Code(s): K92.1 - MELENA (3) CAD (coronary artery disease) Code(s): I25.10 - ATHSCL HEART DISEASE OF [place] CORONARY ARTERY W/O ANG PCTRS (4) HTN (hypertension) Code(s): I10 - ESSENTIAL (PRIMARY) HYPERTENSION (5) Anemia Code(s): D64.9 - ANEMIA, UNSPECIFIED (6) Bleeding Code(s): R58 - HEMORRHAGE, NOT ELSEWHERE CLASSIFIED (7) Hypovolemic shock Code(s): R57.1 - HYPOVOLEMIC SHOCK
--- NOTE | 2017-05-07 11:23 | DS ---
Physical Examination Vital Signs: Vital Signs Temperature 97.9 F 05/07/17 05:53 Pulse Rate 74 05/07/17 05:53 Respiratory Rate 20 05/07/17 05:53 Blood Pressure 139/64 05/07/17 05:53 O2 Sat by Pulse Oximetry (%) 99 05/05/17 19:23 Constitutional: Yes: No Distress, Calm Cardiovascular: Yes: Regular Rate and Rhythm Respiratory: Yes: CTA Bilaterally Gastrointestinal: Yes: Normal Bowel Sounds, Soft, Abdomen, Obese. No: Distention, Tenderness Edema: No Labs: CBC, BMP 05/07/17 06:25 05/06/17 05:00 Discharge Summary Reason For Visit: GASTROINTESTINAL BLEED W/MELENA Current Active Problems Anemia (Acute) Arteriosclerotic heart disease (ASHD) (Acute) Bleeding (Acute) CAD (coronary artery disease) (Acute) Family history of colonic polyps (Acute) Gastrointestinal hemorrhage with melena (Acute) HTN (hypertension) (Acute) Hyperlipidemia (Acute) Hypokalemia (Acute) Hypovolemic shock (Acute) Stented coronary artery (Acute) Syncope (Acute) Vomiting (Acute) Hospital Course: Admitted for GI bleeding Had been seen by GI, Cardiology EGD and Colonoscopy on 05/02-- multiple gastric ulcers and diverticuli He bled again and became hypotensive- transferred to ICU for active GI bleeding and hypovolemic shock . Rapid response was called when he went to Radiology for CTA abdomen-- Hb was around 6. Pt started on Octreotide drip along with Protonix., Seen by Surgeon- Dr Serrato - no further bleeding since 05/04. Tolerating soft diet No further bleeding HB stable No drop in Hb Pathology -- H pylor-- will start antibiotics regimen stable for dc home To follow up with DR Gonzalez and Dr Mackenzie Condition: Good - Instructions Referrals: Gallito Mackenzie MD [Primary Care Provider] - Jessica Gonzalez MD [Staff Physician] - Disposition: HOME - Home Medications Comprehensive Discharge Medication List: Ambulatory Orders Atorvastatin Calcium 10 mg PO DAILY tablet 11/29/13 Travoprost ([place]) [Travatan 0.004% Eye Drop] 1 drop OU HS 04/26/14 Nitroglycerin Sublingual [Nitrostat -] 0.4 mg SL PRN 04/27/14 Pantoprazole Sodium [Protonix -] 40 mg PO BID #60 tab 05/07/17
[2017-05-07 11:53] VITALS: BP 143/68; TEMP 98.3
[2017-05-07] MEDS ORDERED: CLARITHROMYCIN 500 MG TABLET (UD) PO SCH (12:00)
[2017-05-07] MEDS ORDERED: AMOXICILLIN 500 MG CAPSULE (FP) PO SCH (12:00)
--- NOTE | 2017-05-07 12:38 | PN ---
Progress Note, Physician History of Present Illness: The patient is a 71 year old male, with a significant past medical history of HTN and CAD with cardiac stent, who presents to the emergency department with rectal bleeding, lower abdominal pain, nausea, vomiting and dizziness onset today. He reports that he had a total of 3 bowel movements that were bloody in nature. He reports mild abdominal pain on the left side of his body, ranging from mild to moderate, without radiation or modifying factors. He notes that after a vomiting episode his abdominal pain resolved. He describes his vomit as nonbloody and nonbilious. He reports that he has never had a colonoscopy. The patient denies chest pain, shortness of breath, headache, fever, chills, diarrhea and constipation. Denies dysuria, frequency, urgency and hematuria. Allergies: Past surgical history: Knee surgery, eye surgery (Cataracts and Glaucoma) Social history: No alcohol, tobacco or drug use reported PMD - Dr. Gallito Mackenzie [facility] drug-eluting stent of OM2 during NSTEMI (10/15/11) Ongoing medical problems BPH erectile dysfunction glaucoma HTN hyperlipidemia NSTEMI 10/15/2011-->Coronary angiogram: 3VD, with JOSÉ of OM2 (LAD prox 30%;mid40 %;distal 50%; D1 95% inf branch; OM1 30%;OM2 98%-->JOSÉ; RCA prox 40%;mid 30%; RPDA 30%; RPLS 98% tandem) obesity occasional headaches (?related to glaucoma) - Current Medication List Current Medications: Active Medications Amoxicillin (Amoxicillin -) 1,000 mg PO BID [facility] Atorvastatin Calcium (Lipitor -) 10 mg PO [facility] Last Admin: 05/06/17 21:27 Dose: 10 mg Clarithromycin (Biaxin -) 500 mg PO BID [facility] Latanoprost (Xalatan 0.005% Eye Drops -) 1 drop OU HS [facility] Last Admin: 05/06/17 21:27 Dose: 1 drop Pantoprazole Sodium (Protonix -) 40 mg PO BID [facility] Last Admin: 05/07/17 09:46 Dose: 40 mg - Objective Vital Signs: Vital Signs Temperature 98.3 F 05/07/17 09:00 Pulse Rate 74 05/07/17 09:00 Respiratory Rate 20 05/07/17 09:00 Blood Pressure 143/68 05/07/17 09:00 O2 Sat by Pulse Oximetry (%) 99 05/05/17 19:23 Eyes: Yes: WNL, Conjunctiva Clear, EOM Intact HENT: Yes: WNL, Atraumatic, Normocephalic Neck: Yes: WNL, Supple, Trachea Midline Cardiovascular: Yes: WNL, Regular Rate and Rhythm Respiratory: Yes: WNL, Regular, CTA Bilaterally Gastrointestinal: Yes: WNL, Normal Bowel Sounds Genitourinary: Yes: WNL Musculoskeletal: Yes: WNL Extremities: Yes: WNL Edema: No Integumentary: Yes: WNL Neurological: Yes: WNL, Alert, Oriented ...Motor Strength: WNL Psychiatric: Yes: WNL Labs: CBC, BMP 05/07/17 06:25 05/06/17 05:00 INR, PTT INR 1.16 (0.82-1.09) H 05/03/17 20:55 Problem List - Problems (1) Arteriosclerotic heart disease (ASHD) Code(s): I25.10 - ATHSCL HEART DISEASE OF [place] CORONARY ARTERY W/O ANG PCTRS (2) CAD (coronary artery disease) Code(s): I25.10 - ATHSCL HEART DISEASE OF [place] CORONARY ARTERY W/O ANG PCTRS (3) Family history of colonic polyps Code(s): Z83.71 - FAMILY HISTORY OF COLONIC POLYPS (4) Gastrointestinal hemorrhage with melena Code(s): K92.1 - MELENA (5) HTN (hypertension) Code(s): I10 - ESSENTIAL (PRIMARY) HYPERTENSION (6) Rectal bleeding Code(s): K62.5 - HEMORRHAGE OF ANUS AND RECTUM (7) Stented coronary artery Code(s): Z95.5 - PRESENCE OF CORONARY ANGIOPLASTY IMPLANT AND GRAFT (8) Vomiting Code(s): R11.10 - VOMITING, UNSPECIFIED (9) Head injury Code(s): S09.90XA - UNSPECIFIED INJURY OF HEAD, INITIAL ENCOUNTER (10) Whiplash Code(s): S13.4XXA - SPRAIN OF LIGAMENTS OF CERVICAL SPINE, INITIAL ENCOUNTER Assessment/Plan - Problems (1) Gastrointestinal hemorrhage with melena Assessment/Plan: acute anemia; rectal bleed. On observation; f/u with surgeon and GI. Code(s): K92.1 - MELENA (2) HTN (hypertension) Assessment/Plan: on linisopril and metoprolol; held for low BP, though now again elevated. Check orthostatic S; cautiously restart meds one at a time. Code(s): I10 - ESSENTIAL (PRIMARY) HYPERTENSION (3) Stented coronary artery Code(s): Z95.5 - PRESENCE OF CORONARY ANGIOPLASTY IMPLANT AND GRAFT (4) Hyperlipidemia Assessment/Plan: on lipitor. Code(s): E78.5 - HYPERLIPIDEMIA, UNSPECIFIED (5) Syncope Assessment/Plan: 2nd event. Marked anemia, despite receving PRBCs. Code(s): R55 - SYNCOPE AND COLLAPSE (6) Hypokalemia Assessment/Plan: replete K+; f/u all electrolytes. Keep K 4-4.5; Mg 2-2.3; PO4>2.5. Code(s): E87.6 - HYPOKALEMIA
--- NOTE | 2017-05-07 14:17 | PN ---
Progress Note (short form) - Note Progress Note: no further bleeding clear for discharge Problem List - Problems (1) Bleeding Code(s): R58 - HEMORRHAGE, NOT ELSEWHERE CLASSIFIED
== END 2017-05-07 15:07 | disposition home or self-care (01) | DRG 377 ==
LOC: JER 22:06 → JERBED 04-30 01:01 → UNDOADMIN 04-30 01:03 → J8W 04-30 04:10 → JICU 05-03 20:26 → J6S 05-06 17:25
PROVIDERS: ADMIT Internal Medicine; ATTEND Internal Medicine
PROC: 0DB68ZX Excision of Stomach, Via Natural or Artificial Opening Endoscopic, Diagnostic (ICD-10-PCS; 2017-05-02)
PROC: 0DJD8ZZ Inspection of Lower Intestinal Tract, Via Natural or Artificial Opening Endoscopic (ICD-10-PCS; 2017-05-02)
PROC: 0DB98ZX Excision of Duodenum, Via Natural or Artificial Opening Endoscopic, Diagnostic (ICD-10-PCS; principal; 2017-05-02 12:00)
PROC: 30233N1 Transfusion of Nonautologous Red Blood Cells into Peripheral Vein, Percutaneous Approach (ICD-10-PCS; 2017-05-03)
DX: K57.91 Diverticulosis of intestine, part unspecified, without perforation or abscess with bleeding (principal); R57.1 Hypovolemic shock; I10 Essential (primary) hypertension; K62.5 Hemorrhage of anus and rectum; I25.10 Atherosclerotic heart disease of native coronary artery without angina pectoris; Z95.5 Presence of coronary angioplasty implant and graft; N40.0 Benign prostatic hyperplasia without lower urinary tract symptoms; E78.5 Hyperlipidemia, unspecified; E66.9 Obesity, unspecified; R55 Syncope and collapse; E86.0 Dehydration; K25.9 Gastric ulcer, unspecified as acute or chronic, without hemorrhage or perforation; K64.8 Other hemorrhoids; E87.6 Hypokalemia; I95.9 Hypotension, unspecified; Z68.26 Body mass index [BMI] 26.0-26.9, adult
CPT/HCPCS: 36415; 36430; 71010-TC; 74174-TC; 80048; 80053; 80061; 82272; 82550; 82553; 82728; 83540; 83550; 83721; 83735; 84443; 84484; 85025; 85027; 85044; 85610; 85730; 86850; 86900; 86901; 86922; 88305-TC; 93005; 93010; 93306-TC; 99284-25; P9038; P9058

== ENCOUNTER 2021-11-14 04:40 | Day surgery (SDC) | payer OTHER ==
[2021-11-09 14:39] VITALS: BMI 29.2
[2021-11-14] MEDS ORDERED: TETRACAINE/BENZOCAINE/BUTAMBEN 20 GM SPR TP ONE (09:53)
[2021-11-14 10:26] VITALS: TEMP 98
[2021-11-14 11:03] VITALS: BP 171/88; PULSE 71
== END 2021-11-14 11:19 | disposition home or self-care (01) ==
LOC: JASU-ENDO 04:40
PROVIDERS: ATTEND Internal Medicine Gastroenterology
PROC: 0DB98ZX Excision of Duodenum, Via Natural or Artificial Opening Endoscopic, Diagnostic (ICD-10-PCS; 2021-11-14)
PROC: 0DB78ZX Excision of Stomach, Pylorus, Via Natural or Artificial Opening Endoscopic, Diagnostic (ICD-10-PCS; 2021-11-14)
PROC: 0DBN8ZX Excision of Sigmoid Colon, Via Natural or Artificial Opening Endoscopic, Diagnostic (ICD-10-PCS; principal; 2021-11-14 10:00)
DX: Z12.11 Encounter for screening for malignant neoplasm of colon (principal); D17.5 Benign lipomatous neoplasm of intra-abdominal organs; K29.40 Chronic atrophic gastritis without bleeding; K57.30 Diverticulosis of large intestine without perforation or abscess without bleeding; K92.1 Melena; K64.8 Other hemorrhoids; I10 Essential (primary) hypertension; K59.89 Other specified functional intestinal disorders
CPT/HCPCS: 88305-TC; 88342-TC